=== PATIENT | male | born 1945 | race Caucasian/White ===

== ENCOUNTER 2017-01-07 08:03 | Day surgery (SDC) | payer MEDICARE ==
[~2017-01-07 08:03] MED LIST: Buffered Lidocaine 1% SYRIN* 3 ML/SYR SYRINGE INTRADERM ONE
[2017-01-07] MEDS ORDERED: ceFAZolin 2 GM PREMIX(*) 2 GM/50 ML BAG IVPB ONE (08:23)
[2017-01-07] MEDS ORDERED: fentaNYL* 50 MCG/ML 2 ML VIAL (100 MCG VIAL) ONE (09:25)
[2017-01-07] MEDS ORDERED: Midazolam* 1 MG/ML 2 ML VIAL (2 MG) ONE ×2 (09:25→10:12)
[2017-01-07] MEDS ORDERED: Bupivacaine 0.25% EPI 200,000* 30 ML SDV ONE (09:46)
[2017-01-07] MEDS ORDERED: Lidocaine 1% MPF wEPI 200,000* 30 ML SDV ONE (09:46)
[2017-01-07] MEDS ORDERED: Propofol* 10 MG/ML 20 ML BTL IV PUSH ONE (10:35)
[2017-01-07] MEDS ORDERED: Ondansetron INJ* 2 MG/ML VIAL IV PRN (10:38)
[2017-01-07] MEDS ORDERED: Scopolamine 1.5 mg* PATCH TRANSDERM PRN (10:38)
[2017-01-07] MEDS ORDERED: Metoclopramide IV* 5 MG/ML 2 ML VIAL IV PRN (10:38)
[2017-01-07 12:20] VITALS: BP 121/67
== END 2017-01-07 12:21 | disposition home or self-care (01) ==
LOC: OR 08:03
PROVIDERS: ATTEND Plastic Surgery
DX: C44.41 Basal cell carcinoma of skin of scalp and neck (principal); I10 Essential (primary) hypertension
CPT/HCPCS: 88305; 88331; 88332; J0690; J2001; J2250; J2704; J3010

== ENCOUNTER 2019-04-29 06:55 | Inpatient (IN) | payer MEDICARE ==
--- NOTE | 2019-04-18 14:05 | HP ---
HISTORY AND PHYSICAL: DATE OF ADMISSION: ADDENDUM: PAST MEDICAL HISTORY: Enlarged prostate. MEDICATIONS: Aspirin 325 mg p.o. daily. PLAN: The patient will stop his 325 mg aspirin 10 days prior to surgery, and due to an enlarged prostate, urine output will be monitored postoperatively as well as a coude catheter may be used in surgery. PROMISE SANDOVAL [id number]/[facility] #: [id number] [facility]
--- NOTE | 2019-04-19 03:43 | HP ---
ADDENDUM NOW INCLUDED ON THIS REPORT PREOPERATIVE HISTORY AND PHYSICAL: DATE OF ADMISSION: 04/29/19 ATTENDING PROVIDER: Dr. Serrano * (DICTATED BY PROMISE Zarco) CHIEF COMPLAINT: Right knee pain. HISTORY OF PRESENT ILLNESS: Mr. Reid is a 73-year-old male who presents with greater than 5 years of right knee pain, which is increasing in severity. He describes the pain as 6/10 ache in both knees, but the right is greater than the left. He is no longer able to walk more than 1 block without severe pain and has difficulty with stair climbing and standing. He has tried to manage his discomfort with antiinflammatories, pain medication, physical therapy, steroid injections as well as lubricant injections without relief. He presents for history and physical to proceed with right total knee replacement. PAST MEDICAL HISTORY: Significant for: 1. Hypertension. 2. Hypercholesterolemia. 3. Osteoarthritis. 4. Basal cell carcinoma. PAST SURGICAL HISTORY: 1. Tonsillectomy. 2. Hernia repair. 3. Skin cancer excision. 4. Appendectomy. 5. Nasal surgery. He denies anesthetic complication with any of these procedures. CURRENT MEDICATIONS: 1. Atorvastatin calcium 10 mg p.o. daily. 2. Chlorthalidone 25 mg p.o. daily. 3. Quinapril HCl 40 mg p.o. daily. 4. Amlodipine besylate 10 mg p.o. daily. 5. Metoprolol succinate ER 100 mg daily. 6. Turmeric. ALLERGIES: No known drug allergies. FAMILY HISTORY: Significant for cancer and stroke in his mother, but no diabetes or heart disease noted. SOCIAL HISTORY: He lives alone, but his girlfriend will be attending to him postsurgically. He is a retired teacher. He denies tobacco, alcohol or recreational drug use. He is very active with stationary bike, hunting, fishing , and camping. REVIEW OF SYSTEMS: A 14-point review of systems was reviewed today. He reports his bilateral knee pain and seasonal allergies, but denies headache, lightheadedness, chest pain, shortness of breath with exertion, nausea, vomiting , or diarrhea. No numbness and tingling. All other systems are negative. PHYSICAL EXAMINATION GENERAL: He is a well-developed, well-nourished male, seated on exam table in no acute distress with appropriate affect. VITAL SIGNS: Height 65 inches, weight 174 pounds. Pulse 80, blood pressure 152 /74. HEENT: Normocephalic, atraumatic. Hearing and vision are grossly intact with extraocular movements intact. NECK: The trachea is midline and symmetrical. LUNGS: Clear to auscultation with no wheezes, rales, or rhonchi appreciated. HEART: Regular rate and rhythm with a normal S1, S2. No murmurs, rubs, or gallops noted. ABDOMEN: Nondistended and nontender with bowel sounds present. NEUROLOGIC: Gait: The patient's gait is antalgic, favoring the right knee with slowed and shortened steps. MUSCULOSKELETAL: Right Lower Extremity: Skin is clean, dry, and intact without abrasions or open wounds. There is a moderate effusion of the right knee with 15 to 115 degrees of flexion. He is tender to palpation along the medial joint line without varus or valgus instability. He has patellar crepitus with range of motion. No distal edema, varicosities, or hyperreflexia appreciated; 5/5 strength against resistance with dorsiflexion and plantarflexion. Sensation is intact and 2+ dorsalis pedis pulse. IMAGING: X-rays taken previously showed end-stage arthritis with medial bone- on- bone contact and tricompartmental joint space narrowing with osteophyte formation and subchondral sclerosis. ASSESSMENT: Right knee osteoarthritis. PLAN: Right total knee replacement by Dr. Serrano. The patient's questions were answered and he would like to proceed. Pain medication will be dispensed upon discharge from the hospital. The patient can call us with questions or concerns , otherwise. PROMISE ZARCO ADDENDUM: PAST MEDICAL HISTORY: Enlarged prostate. MEDICATIONS: Aspirin 325 mg p.o. daily. PLAN: The patient will stop his 325 mg aspirin 10 days prior to surgery; and, due to an enlarged prostate, urine output will be monitored postoperatively as well as a coude catheter may be used in surgery. PROMISE ZARCO [id number]/[facility] #: [id number]/[facility] #: [id number] ESTHER
[~2019-04-29 06:55] MED LIST changes: +Acetaminophen TAB* 325 MG PO ONE; +Buffered Lidocaine 1% SYRIN* 1 ML/SYRINGE INTRADERM ONE; -Buffered Lidocaine 1% SYRIN* 3 ML/SYR SYRINGE INTRADERM ONE; +Famotidine IV* 10 MG/ML 2 ML (20 mg) IV ONE; +Gabapentin CAP(*) 300 MG PO ONE; +Lactated Ringers 1000 ML Bag* 1,000 ML IV SCH; +Tranexamic Acid 1,000 MG in NS 0.9% 50 ML* (outpatient use) IV SCH
--- OUTSIDE RECORDS SUMMARY | 2019-04-29 07:00 | XMS REPORT | Continuity of Care Document ---
:1945 External Reference #:[id number] Author Name Aretha Lee Care Team Providers Name Role Phone Stalin Barnett MD Primary Care Physician Unavailable Payers Date Identification Numbers Payment Provider Subscriber Policy Number: [id number] Medicare Hakeem Reid PayID: [id number] [address] [place] [address] Policy Number: [id number] [facility] Hakeem Reid PayID: [id number] [address] [place] [address] Expires: 2019 Policy Number: [id number] Medicare Hakeem Reid PayID: [id number] [address] [place] [address] Problems Active Problems Provider Date Localized, primary osteoarthritis Tasneem Serrano M.D. Onset: 03/26/2019 Family History Date Family Member(s) Observation Comments General Stroke General Cancer Social History Type Date Description Comments Sex Unknown Lives With Alone Occupation Retired ETOH Use Denies alcohol use Tobacco Use Start: Unknown End: Patient is a former 45 years ago Unknown smoker Smoking Status Reviewed: 04/16/19 Patient is a former 45 years ago smoker Exercise Type/Frequency Exercises regularly Allergies, Adverse Reactions, Alerts Description No Known Drug Allergies Medications Active Medications SIG Qnty Indications Ordering Provider Date Atorvastatin Calcium Stalin Barnett MD 10mg Tablets Chlorthalidone Stalin Barnett MD 25mg Tablets Quinapril HCL Stalin Barnett MD 40mg Tablets Amlodipine Besylate Stalin Barnett MD 10mg Tablets Metoprolol Succinate ER Stalin Barnett MD 100mg Tablets ER 24HR Turmeric Unknown Aspirin Adult Unknown 325mg Tablets Vital Signs Date Vital Result Comment 04/16/2019 10:48am Height 65 inches 5'5" Weight 174.00 lb Heart Rate 80 /min BP Systolic 152 mmHg BP Diastolic 74 mmHg BMI (Body Mass Index) 29.0 kg/m2 03/26/2019 2:21pm Height 65 inches 5'5" Weight 172.00 lb Heart Rate 73 /min BP Systolic 160 mmHg BP Diastolic 84 mmHg Respiratory Rate 18 /min Pain Level 6 BMI (Body Mass Index) 28.6 kg/m2 Procedures Date Code Description Status 12/26/2015 94583 Laparoscopy, Hernioplasty, Herniorrhaphy, Herniotomy Completed Unlisted 12/26/2015 52649 Laparoscopy, Surgical Repair Initial Inguinal Hernia Completed Encounters Type Date Location Provider Dx Diagnosis Office Visit 03/26/2019 Orthopedic Tasneem Serrano, M25.561 Pain in right 2:[facility].AJimmy Mayes knee M25.562 Pain in left knee M25.462 Effusion, left knee M25.461 Effusion, right knee M17.0 Bilateral primary osteoarthritis of knee Plan of Treatment Future Appointment(s):05/11/2019 10:30 am - MIRANDA Nogueira at [facility]..04/29/2019 3:30 pm - MIRANDA Segovia at [facility].AJimmy04/29/2019 3:30 pm - MIRANDA Nogueira at [facility].Jimmy04/29/2019 3:30 pm - Tasneem Serrano M.D. at [facility].
[2019-04-29] MEDS ORDERED: Gabapentin CAP(*) 300 MG ONE (08:17)
[2019-04-29] MEDS ORDERED: ceFAZolin 2 GM in NS PREMIX(*) 2 GM/100 ML BAG IVPB ONE (08:18)
[2019-04-29] MEDS ORDERED: Famotidine IV* 10 MG/ML 2 ML (20 mg) ONE (08:18)
[2019-04-29] MEDS ORDERED: Buffered Lidocaine 1% SYRIN* 1 ML/SYRINGE INTRADERM ONE (08:18)
[2019-04-29] MEDS ORDERED: Acetaminophen TAB* 325 MG ONE (08:18)
[2019-04-29] MEDS ORDERED: ROPIVACAINE 5 MG/ML 30 ML BTL (0.5%) ONE ×2 (08:47→08:50)
[2019-04-29] MEDS ORDERED: Midazolam* 1 MG/ML 2 ML VIAL (2 MG) ONE ×2 (08:48→09:13)
[2019-04-29] MEDS ORDERED: fentaNYL* 50 MCG/ML 2 ML VIAL (100 MCG VIAL) ONE (08:48)
[2019-04-29] MEDS ORDERED: Lidocaine 2% PF * 5 ML VIAL ONE (08:50)
[2019-04-29] MEDS ORDERED: Propofol* 10 MG/ML 20 ML BTL ONE ×2 (09:34→11:06)
[2019-04-29] MEDS ORDERED: Bupivacaine 0.5% SDV PF* 30ML VIAL ONE (10:20)
[2019-04-29] MEDS ORDERED: HYDROmorphone INJ1* 1 MG/ML SYRINGE IV PRN (10:44)
[2019-04-29] MEDS ORDERED: Naloxone* 0.4 MG/ML 1 ML VIAL IV PRN (10:44)
[2019-04-29] MEDS ORDERED: Ondansetron INJ* 2 MG/ML VIAL IV PRN (11:59)
[2019-04-29] MEDS ORDERED: Magnesium Hydroxide LIQ* 30 ML UDC PO PRN (11:59)
[2019-04-29] MEDS ORDERED: diPHENhydraMINE PO* 25 MG PO PRN (11:59)
[2019-04-29] MEDS ORDERED: oxyCODONE/Acetamin 5/325 MG* TAB PO PRN (11:59)
[2019-04-29] MEDS ORDERED: Ondansetron ODT TAB* 4 MG PO PRN (11:59)
[2019-04-29] MEDS ORDERED: Temazepam CAP* 15 MG PO PRN (11:59)
[2019-04-29] MEDS ORDERED: Bisacodyl SUPP* 10 MG SUPP PR PRN (11:59)
[2019-04-29] MEDS ORDERED: Cyclobenzaprine TAB* 10 MG PO PRN (11:59)
[2019-04-29] MEDS ORDERED: Polyethylene Glycol 3350* 17 GM PACKET PO PRN (11:59)
[2019-04-29] MEDS ORDERED: diPHENhydraMINE IV* 50 MG/ML 1 ml VIAL (BENADRYL) IV PRN (11:59)
[2019-04-29] MEDS: Lactated Ringers 1000 ML Bag* 1,000 ML IV SCH (13:29)
[2019-04-29] MEDS: traMADol TAB* 50 MG PO PRN (13:33)
--- NOTE | 2019-04-29 14:18 | CONS ---
CC: Dr. Barnett; Dr. Tasneem Serrano * CONSULTATION REPORT: DATE OF CONSULT: 04/29/19 PRIMARY CARE PROVIDER: Dr. Barnett. REQUESTING PHYSICIAN: Dr. Tasneem Serrano. REASON FOR CONSULT: Management of comorbidities. HISTORY OF PRESENT ILLNESS: Mr. Reid is a 74-year-old male with a past medical history of hypertension, BPH, hyperlipidemia, who has had years of right knee pain progressively increasing in severity. He failed outpatient management and was now admitted for an elective right total knee replacement that he underwent today with Dr. Serrano. The hospitalist service was consulted for management of comorbidities. I saw the patient in the PACU, and at that time, he had no complaints of pain, chest pain, palpitation, shortness of breath. He states that his blood pressure is usually well controlled at home, but he was anxious for surgery today, so his numbers were higher on hospital arrival. PAST MEDICAL HISTORY: 1. Hypertension. 2. Hyperlipidemia. 3. Osteoarthritis. 4. Basal cell carcinoma. 5. Status post tonsillectomy. 6. Status post skin cancer resection. 7. Status post hernia repair. 8. Status post appendectomy. 9. Hiatal hernia. FAMILY HISTORY: His mother had a history of cancer and stroke. 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 Denies tobacco, alcohol, or recreational drug use. Surrogate decision maker is his daughter, Donya Kelly. Phone number is [phone] or [phone]. REVIEW OF SYSTEMS: A 14-point review of systems was performed and all the pertinent negative and positive findings are in the HPI. PHYSICAL EXAMINATION: Vital Signs: Temperature 97.9, heart rate is 66, respiratory rate is 18, oxygen saturation is 99% on 2 L nasal cannula, blood pressure is 131/73. General: The patient is a pleasant elderly gentleman, lying down in bed, in no acute distress. HEENT: Pupils are equal. Moist mucous membranes. CVS: Normal S1, S2. Regular rate and rhythm. Chest: Breath sounds present bilaterally with no added sounds. Abdomen is soft. Bowel sounds present. Extremities: The patient has a Cryounit to his right knee. Neuro: He is alert and oriented x3. Able to move all 4 extremities. ASSESSMENT AND PLAN: Mr. Reid is a 74-year-old male with past medical history of hypertension, hyperlipidemia, BPH, admitted for an elective right total knee replacement. 1. Right total knee arthroplasty. Management as per Orthopedics. 2. Hypertension. We are going to continue his amlodipine, chlorthalidone, metoprolol, and BRANDEE inhibitor with holding parameters. 3. Hyperlipidemia. We will continue statin. 4. Possible obstructive sleep apnea. The patient states that he was never diagnosed with sleep apnea, but that his used to tell him that he would "stop breathing while sleeping." We will monitor his oxygen saturation overnight and he will probably benefit of a sleep study as an outpatient. 5. DVT prophylaxis. It will be with apixaban as per ortho recommendation. 6. Code status is full. TIME SPENT: Approximately 45 minutes was spent with patient interview, medical records review, and physical examination to complete this consultation. More than half of this time was spent [id number] with the patient and coordination of care. [id number]/[facility] #: [id number] MTDD
[2019-04-29] MEDS: oxyCODONE TAB* 5 MG TAB PO PRN ×3 (14:21→22:47)
[2019-04-29] MEDS: Morphine INJ* 2 MG/ML 1 ML SYRINGE (TWO MG - NEW SYRINGE VERSION) IV PRN (14:24)
[2019-04-29] MEDS: Acetaminophen TAB* 325 MG PO SCH (15:39)
[2019-04-29] MEDS: oxyCODONE/Acetamin 5/325 MG* TAB PO PRN ×2 (16:21→20:47)
[2019-04-29] MEDS: ceFAZolin 1 GM ADVAN(*) 1 GM in NS 0.9% 50 ML* 50 ML IVPB SCH (17:13)
--- NOTE | 2019-04-29 17:17 | PN ---
Progress Note - Progress Note Date of Service: 04/29/19 - Post-op Note: Patient is resting in bed complaining of throbbing pain that has not been relieved with 2 percocet. He has been OOB with PT already. He denies CP, SOB or dizziness. He can dorsi/plantar flex bilaterally, with intact sensation and 2+ DP pulses. Calves and thighs are soft. Skin is warm and dry. I will discuss pain management nt with nursing. Patient hopes for d/c tomorrow. Continue PT/OT and we will monitor.
[2019-04-29] MEDS: Morphine TAB Extended Release (*) 15 MG TAB.ER PO PRN (17:27)
[2019-04-29] MEDS: Magnesium Hydroxide LIQ* 30 ML UDC PO SCH (20:48)
[2019-04-29] MEDS: Docusate CAP* 100 MG PO SCH (20:48)
[2019-04-29] MEDS ORDERED: Atorvastatin* 10 MG TAB PO SCH (21:00)
--- NOTE | 2019-04-29 22:54 | OP ---
Operative Report - Blank - Operative Report Date of Operation: 04/29/19 Note: KEE CANO 1945 Date of Surgery: 04/29/19 Tasneem Serrano MD [employer] Machine Adjuster: Renee VIRGEN did help throughout the procedure with preparation of the knee, wound retraction, manipulation of the knee, and wound closure. Anesthesiologist: Dr. Pinto Anesthesia Type: Spinal Preoperative Diagnosis: Right severe degenerative osteoarthritis of the knee Postoperative Diagnosis: As above Procedure Performed: Right Total Knee Arthroplasty Tourniquet time: 49 minutes Complications: None Specimen: Bone and cartilage from the right knee joint sent to pathology. Hardware Used: Cemented [employer] total knee hardware was used - For the femur a size 6 narrow right legion posterior stabilized femoral component, for the tibia a size 5 right odalis II tibial baseplate, for the insert a size 9mm 5-6 posterior stabilized articular polyethylene insert, and for the patella a size 32 3-peg all poly patella. Brief History/Indication: KEE CANO was known in clinic and had a history of severe right knee pain and swelling. He failed conservative treatment with anti- inflammatories, pain pills, intra-articular injections and physical therapy. He elected to undergo right total knee arthroplasty due to continued pain and decreased quality of life. Radiographs showed severe end stage osteoarthritis of the knee with bone on bone contact. Informed consent was obtained from the patient. He understood the risks of surgery included but were not limited to: bleeding, infection, damage to nearby structures, intraoperative fracture, nerve palsy, failure of the hardware, early loosening, knee stiffness or loss of motion, anesthesia complications, stroke, heart attack, blood clot and . He wished to proceed. Intra-Operative Findings: Intraoperatively the patient was noted to have severe loss of cartilage in all 3 compartments of the knee. Description of the Procedure: KEE CANO was identified in the preanesthesia unit. His right knee was marked as the correct operative side. Informed consent was signed and placed in the chart. The patient was taken to the operating room and placed under anesthesia without complication. A landin catheter was placed. A tourniquet was placed on the right thigh. The right lower extremity was prepped and draped in the usual sterile fashion. Preoperative time-out was made to correctly identify the patient, side and site. Appropriate intraoperative antibiotics were given within one hour of incision. Tourniquet was inflated. A midline incision was made and carried sharply down to the extensor mechanism. A new 10 blade was used to make a standard medial parapatellar arthrotomy. The patella was subluxed laterally. Electrocautery was used to dissect soft tissue off the superomedial tibia to the midsagittal plane. The knee was flexed up. The anterior horn of the lateral meniscus and the ACL were sharply incised. A drill was used to enter the distal femur. The intramedullary distal femoral cutting guide was pinned on the distal femur. The oscillating saw was used to make the distal femoral cut. The external rotation guide was pinned on the distal femur and the distal femur was sized to a size 6. The size 6 multi-cutting jig was pinned on the distal femur. The oscillating saw was used to make the appropriate 4 chamfer cuts. Next the PCL was completely released. The extramedullary tibial cutting guide was pinned on the proximal tibia and the oscillating saw was used to make the proximal tibial cut perpendicular to the mechanical axis of the tibia. The bone was carefully removed. The knee was brought out into full extension. The spacer block was placed and had excellent fit with the knee in full extension. The medial and lateral ligaments were well balanced. The flexion and extension gaps were well balanced. The knee was flexed up. Lamina store leader was placed both medially and laterally. Any remaining meniscus was removed with electrocautery. Curved osteotome was used to remove any posterior osteophytes. The tibial tray and drop vanesa were placed and confirmed a satisfactory tibial cut. The size 6 right narrow femoral trial was impacted onto the distal femur. This trial had excellent fit and stability. The box for the posterior stabilized implant was prepared using a box cut osteotome and a reamer. Next a tibial tray trial and 9 mm insert trial was placed. The knee was taken through a range of motion and had full extension to 130 degrees of flexion. Patellofemoral tracking was satisfactory. The patella was inverted and sized to a size 32. Three peg holes were drilled through the size 32 drill guide. The trial patella was placed and the knee was taken through a range of motion. There was satisfactory patellofemoral tracking. All trials were removed. The tibia was subluxed anteriorly and sized to a size 5. The proximal tibial was prepared with a size 5 keel punch. All bony cut surfaces were irrigated with sterile saline and dried. Final implants were cemented into place starting with the tibia, followed by the femur, and last the patella. A 9 mm insert trial was placed and the knee was brought into full extension. Tourniquet was turned down and the knee was copiously irrigated with sterile saline. Electrocautery was used to obtain meticulous hemostasis. Once the cement had fully cured, the insert trial was removed. Any excess cement was removed from around the hardware and capsule. Final insert chosen was a 9 mm posterior stabilized Odalis II articular insert size 5-6. Stability of the insert was checked and noted to be stable. The extensor mechanism was closed using number 1 vicryls. The rest of the incision was closed in a layered fashion using 0 and 2-0 vicryls. The skin was closed using 3-0 nylon suture. Sterile xeroform, 4x4s and webril were used to cover the incision. Dennys wrap and cold pack were used to cover the dressings. The patients anesthesia was reversed without difficulty. He was taken to the PACU in stable condition. Intended weight-bearing will be as tolerated.
[2019-04-30] MEDS: oxyCODONE/Acetamin 5/325 MG* TAB PO PRN ×4 (00:49→16:19)
[2019-04-30] MEDS: ceFAZolin 1 GM ADVAN(*) 1 GM in NS 0.9% 50 ML* 50 ML IVPB SCH ×2 (00:52→09:31)
[2019-04-30] MEDS: Lactated Ringers 1000 ML Bag* 1,000 ML IV SCH (00:52)
[2019-04-30] MEDS: Acetaminophen TAB* 325 MG PO SCH ×2 (00:58→09:25)
[2019-04-30] MEDS: oxyCODONE TAB* 5 MG TAB PO PRN ×2 (02:53→07:17)
[2019-04-30] MEDS: Morphine INJ* 2 MG/ML 1 ML SYRINGE (TWO MG - NEW SYRINGE VERSION) IV PRN (02:54)
[2019-04-30 06:00] LABS: Hematocrit 41 % (42-52); Platelet Count 297 10^3/uL (150-450)
[2019-04-30] MEDS: Morphine TAB Extended Release (*) 15 MG TAB.ER PO PRN (06:06)
[2019-04-30] MEDS: traMADol TAB* 50 MG PO PRN (06:06)
[2019-04-30 06:16] LABS: Potassium 3.7 mmol/L (3.5-5.0)
[2019-04-30 06:21] LABS: BUN/Creatinine Ratio 17.6 (8-20); EGFR African American 106.9 (>60); EGFR Non-African American 88.4 (>60)
[2019-04-30] MEDS ORDERED: Chlorthalidone TAB* 50 MG PO SCH (09:00)
[2019-04-30] MEDS ORDERED: Apixaban* 2.5 MG TAB PO SCH (09:00)
[2019-04-30] MEDS ORDERED: Lisinopril TAB* 10 MG PO SCH (09:00)
[2019-04-30] MEDS ORDERED: Metoprolol Succinate XL TAB* 100 MG PO SCH ×2 (09:00)
[2019-04-30] MEDS ORDERED: amLODIPine TAB* 5 MG PO SCH ×2 (09:00)
[2019-04-30] MEDS ORDERED: NON FORMULARY MED* (Chlorthalidone [Chlorthalidone] 25 MG) PO SCH (09:00)
[2019-04-30] MEDS ORDERED: QUINAPRIL 40 MG PO SCH (09:00)
[2019-04-30] MEDS: Docusate CAP* 100 MG PO SCH (09:29)
[2019-04-30] MEDS: Magnesium Hydroxide LIQ* 30 ML UDC PO SCH (09:29)
[2019-04-30 11:25] VITALS: BP 148/67
--- NOTE | 2019-04-30 11:41 | PN ---
Subjective Date of Service: 04/30/19 Interval History: Patient is having significant pain in his leg, denies numbness and tingling. Patient denies F/C, N/V, abdominal pain, dysuria, dizziness, palpitations, SOB, or other pain. Patient is on oxygen due to desaturations, but feels this got worse after pain medications. Family History: Unchanged from Admission Social History: Unchanged from Admission Past Medical History: Unchanged from Admission Objective Active Medications: Acetaminophen (Tylenol Tab*) 975 mg PO Q8H [facility] Last Admin: 04/30/19 09:25 Dose: Not Given Amlodipine Besylate (Norvasc Tab*) 10 mg PO QAM [facility] Last Admin: 04/30/19 09:27 Dose: 10 mg Apixaban (Eliquis*) 2.5 mg PO BID [facility] Last Admin: 04/30/19 09:27 Dose: 2.5 mg Atorvastatin Calcium (Lipitor*) 10 mg PO BEDTIME [facility] Last Admin: 04/29/19 20:47 Dose: 10 mg Bisacodyl (Dulcolax Supp*) 10 mg TX DAILY PRN PRN Reason: constipation Chlorthalidone (Hygroton Tab*) 25 mg PO QAM [facility] Last Admin: 04/30/19 09:27 Dose: 25 mg Cyclobenzaprine HCl (Flexeril Tab*) 10 mg PO TID PRN PRN Reason: SPASMS Last Admin: 04/30/19 00:50 Dose: 10 mg Diphenhydramine HCl (Benadryl Iv*) 25 mg IV Q6H PRN PRN Reason: itching Diphenhydramine HCl (Benadryl Po*) 25 mg PO Q6H PRN PRN Reason: itching Docusate Sodium (Colace Cap*) 100 mg PO BID [facility] Last Admin: 04/30/19 09:29 Dose: Not Given Lactated Ringer's (Lactated Ringers 1000 Ml Bag*) 1,000 mls @ 100 mls/hr IV PER RATE [facility] Last Admin: 04/30/19 00:52 Dose: 100 mls/hr Lactulose (Lactulose*) 30 ml PO Q6H PRN PRN Reason: constipation Lisinopril (Prinivil Tab*) 40 mg PO QAM [facility] Last Admin: 04/30/19 09:29 Dose: 40 mg Magnesium Hydroxide (Milk Of Magnesia Liq*) 30 ml PO BID [facility] Last Admin: 04/30/19 09:29 Dose: Not Given Magnesium Hydroxide (Milk Of Magnesia Liq*) 30 ml PO Q6H PRN PRN Reason: constipation Metoprolol Succinate (Toprol Xl Tab*) 100 mg PO QAM [facility] Last Admin: 04/30/19 09:29 Dose: 100 mg Morphine Sulfate (Morphine Inj (Syringe))*) 2 mg IV Q2H PRN PRN Reason: PAIN - SEVERE Last Admin: 04/30/19 02:54 Dose: 2 mg Morphine Sulfate (Ms Contin(*)) 15 mg PO Q12H PRN PRN Reason: Unrelieved pain Last Admin: 04/30/19 06:06 Dose: 15 mg Ondansetron HCl (Zofran Inj*) 4 mg IV Q6H PRN PRN Reason: nausea Ondansetron HCl (Zofran Odt Tab*) 4 mg PO Q6H PRN PRN Reason: NAUSEA Oxycodone HCl (Roxycodone Tab*) 10 mg PO Q4H PRN PRN Reason: PAIN - MODERATE Last Admin: 04/30/19 07:17 Dose: 10 mg Oxycodone/Acetaminophen (Percocet 5/325 Tab*) 1 tab PO Q4H PRN PRN Reason: PAIN - MILD Oxycodone/Acetaminophen (Percocet 5/325 Tab*) 2 tab PO Q4H PRN PRN Reason: PAIN - MILD Last Admin: 04/30/19 09:30 Dose: 2 tab Polyethylene Glycol/Electrolytes (Miralax*) 17 gm PO DAILY PRN PRN Reason: Constipation Temazepam (Restoril Cap*) 15 mg PO BEDTIME PRN PRN Reason: INSOMNIA Tramadol HCl (Ultram*) 50 mg PO Q6H PRN PRN Reason: PAIN - MILD Last Admin: 04/30/19 06:06 Dose: 50 mg Vital Signs - 8 hr 04/30/19 04/30/19 04/30/19 04:10 04:40 04:45 Temperature 99.0 F Pulse Rate 82 Respiratory 16 18 16 Rate Blood Pressure 146/77 (mmHg) O2 Sat by Pulse 97 Oximetry 04/30/19 04/30/19 04/30/19 04:47 04:50 06:06 Temperature Pulse Rate Respiratory 16 16 16 Rate Blood Pressure (mmHg) O2 Sat by Pulse 97 Oximetry 04/30/19 04/30/19 04/30/19 06:15 07:17 07:31 Temperature 98.4 F Pulse Rate 85 Respiratory 16 18 16 Rate Blood Pressure 145/76 (mmHg) O2 Sat by Pulse 19 95 Oximetry 04/30/19 04/30/19 04/30/19 08:00 09:30 11:24 Temperature 99.6 F Pulse Rate 78 Respiratory 16 18 16 Rate Blood Pressure 148/67 (mmHg) O2 Sat by Pulse 96 96 Oximetry Oxygen Devices in Use Now: Nasal Cannula Appearance: Patient is a 74yo male who appears stated age and is sitting in the bed in NAD. Eyes: No Scleral Icterus, PERRLA Ears/Nose/Mouth/Throat: NL Teeth, Lips, Gums, Clear Oropharnyx, Mucous Membranes Moist Neck: NL Appearance and Movements; NL JVP, Trachea Midline Respiratory: Symmetrical Chest Expansion and Respiratory Effort, Clear to Auscultation Cardiovascular: NL Sounds; No Murmurs; No JVD, RRR, No Edema Abdominal: NL Sounds; No Tenderness; No Distention, No Hepatosplenomegaly Lymphatic: No Cervical Adenopathy Extremities: No Edema, No Clubbing, Cyanosis Skin: No Nodules or Sclerosis, - - RLE incision covered in bulky dressing. Neurological: Alert and Oriented x 3, NL Sensation, NL Muscle Strength and Tone Result Diagrams: 04/30/19 05:10 04/30/19 05:10 Assess/Plan/Problems-Billing Assessment: Patient is a 74yo male with a PMH for HTN, HLD and is s/p TRKA and is doing well. - Patient Problems (1) Post-operative state Current Visit: Yes Status: Acute Code(s): Z98.890 - OTHER SPECIFIED POSTPROCEDURAL STATES SNOMED Code(s): 39035750 Comment: - Management per Orthopedics - ISB for atalectasis, no concern for PE or PNA at this point with hypoxia. - PT/OT, Bowel regimen, Monitor H/H (2) HTN (hypertension) Current Visit: Yes Status: Acute Code(s): I10 - ESSENTIAL (PRIMARY) HYPERTENSION SNOMED Code(s): 79329038 Comment: - Normotensive, continue amlodipine, lisinopril, and metoprolol (3) HLD (hyperlipidemia) Current Visit: Yes Status: Acute Code(s): E78.5 - HYPERLIPIDEMIA, UNSPECIFIED SNOMED Code(s): 06074109 Comment: - Continue statin. (4) DVT prophylaxis Current Visit: Yes Status: Acute Code(s): Z29.9 - ENCOUNTER FOR PROPHYLACTIC MEASURES, UNSPECIFIED SNOMED Code(s): 902672072 Comment: - Eliquis Per Ortho (5) Full code status Current Visit: Yes Status: Acute Code(s): Z78.9 - OTHER SPECIFIED HEALTH STATUS SNOMED Code(s): 619560127 Status and Disposition: Disposition per orthopedics. Thank you for this consultation, we will continue to follow along.
--- NOTE | 2019-04-30 14:18 | DS ---
Orthopedic Discharge Summary - Discharge Summary Date of Admission:04/29/19 Date of Discharge: 04/30/19 Date of Surgery: 04/29/19 Attending Orthopedic Provider: Dr. Serrano Pre-operative Diagnosis: Degenerative arthritis right knee Operative Procedure: Right total knee arthroplasty Disposition of Patient: home Condition of Patient: Stable History: KEE CANO is a 74 year old M with years of increasingly severe right knee pain. Patient has failed conservative management and has elected to undergo a right total knee replacement. Hospital Course: KEE was admitted to [facility] on 04/29/19. Patient underwent a right total knee without complication followed by a brief recovery in PACU and transfer to the Short Stay Surgical Unit in stable condition. Our hospitalist service, physical therapy and occupational therapy also participated in this patients care. Post-op day 1: patient was alert and in no acute distress. Dressing was clean, dry and intact. Operative extremity dorsiflexion and plantarflexion intact, sensation intact to light touch distally , DP2+. His dressing was changed, incision was clean, dry and intact. Patient was deemed to be medically and orthopedically stable for discharge. Physical therapy goals were met. Home Medications Medication Instructions Recorded Confirmed Type Atorvastatin* [Lipitor 10 MG*] 10 mg PO BEDTIME 12/19/15 04/16/19 History Multivitamin [One Daily] 1 tab PO QAM 12/19/15 04/16/19 History amLODIPine TAB* [Norvasc 5 mg TAB*] 10 mg PO QAM 12/19/15 04/16/19 History Chlorthalidone 25 mg PO QAM 04/16/19 04/16/19 History Metoprolol Succinate 100 mg PO QAM 04/16/19 04/16/19 History Quinapril HCl 40 mg PO QAM 04/16/19 04/16/19 History Apixaban* [Eliquis*] 2.5 mg PO BID #60 tab 04/30/19 Rx Docusate CAP* [Colace Cap*] 100 mg PO BID cap 04/30/19 Rx oxyCODONE/Acetamin 5/325 MG* 1 - 2 tab PO Q4H PRN #70 tab MDD 10 04/30/19 Rx [Percocet 5/325 TAB*] Discharge Instructions following Orthopedic Surgery: Activity: * Weight Bearing as tolerated * Continue physical therapy and occupational therapy exercises as shown * Wound care: * OK to shower on post-op day 3, no bathing, swimming, or submerging wound. * Use gentle soap, pat dry. Cover with gauze, BRANDEE wrap or tape. * Visiting home nurse to do wound checks. Call Orthopedic office for: * Increased drainage * Redness * Increased pain * Fever Go to ER with shortness of breath or chest pain. Diet: * Regular diet * Increase fluids and fiber to prevent constipation. * Continue to use stool softeners, call office if no bowel motion within 48 hours. Medications See Home Medication List in your packet for medications that you should take after discharge. DVT Prophylaxis: Eliquis Dosin.5 mg, 1 tab every 12 hours x 30 days Pain Control: Percocet Dosin/325 mg 1-2 tabs by mouth every 4-6 hours as needed for pain. Maximum of 10 tabs per day. Please note that Percocet contains Tylenol (acetaminophen). Maximum daily dose of Tylenol is 4000 mg from all sources. Antibiotics are required prior to any dental work. FOLLOW UP: Follow up with Dr. Serrano Within 10-14 days, call for appointment Please call our office with any questions or concerns ([phone]) To start outpatient PT as [facility] next week
== END 2019-04-30 17:20 | disposition home or self-care (01) | DRG 470 ==
LOC: AA 06:55 → SSU 11:59
PROVIDERS: ADMIT Orthopaedic Surgery Adult Reconstructive Orthopaedic Surgery; ATTEND Orthopaedic Surgery Adult Reconstructive Orthopaedic Surgery
PROC: 0SRC0J9 Replacement of Right Knee Joint with Synthetic Substitute, Cemented, Open Approach (ICD-10-PCS; principal; 2019-04-29 11:00)
DX: M17.11 Unilateral primary osteoarthritis, right knee (principal); I10 Essential (primary) hypertension; E78.00 Pure hypercholesterolemia, unspecified; J30.2 Other seasonal allergic rhinitis; M25.461 Effusion, right knee; M25.761 Osteophyte, right knee; N40.0 Benign prostatic hyperplasia without lower urinary tract symptoms; E78.5 Hyperlipidemia, unspecified; Z85.828 Personal history of other malignant neoplasm of skin; Z80.9 Family history of malignant neoplasm, unspecified; Z82.3 Family history of stroke
CPT/HCPCS: 36415; 80048; 85014; 85018; 85049; 88305; 88311; A9270-GY; C1776; G8978-GP-CJ; G8979-GP-CI; J0690; J2250; J2270; J2704; J2795; J3010; J3490

== ENCOUNTER 2019-10-01 08:31 | Observation (INO) | payer MEDICARE ==
--- NOTE | 2019-09-24 15:28 | HP ---
HISTORY AND PHYSICAL: DATE OF ADMISSION/SURGERY: 10/01/19 DATE OF OFFICE VISIT: 09/24/19 SURGEON: Tasneem Serrano MD * (DICTATED BY PROMISE ARIAS) PROCEDURE: Left total knee arthroplasty. CHIEF COMPLAINT: Left knee pain. HISTORY OF PRESENT ILLNESS: Mr. Reid is a 74-year-old gentleman with end- stage osteoarthritis of the left knee. He has failed conservative treatment and elected to proceed with a left total knee arthroplasty. PAST MEDICAL HISTORY: 1. Hypertension. 2. High cholesterol. 3. Basal cell carcinoma. PAST SURGICAL HISTORY: 1. Tonsillectomy. 2. Hernia repair. 3. Appendectomy. 4. Nasal surgery. 5. Right total knee arthroplasty. 6. Excision of a basal cell carcinoma. CURRENT MEDICATIONS: 1. Atorvastatin calcium 10 mg a day. 2. Chlorthalidone 25 mg a day. 3. Quinapril 40 mg a day. 4. Amlodipine 10 mg a day. 5. Metoprolol 100 mg a day. 6. Aspirin 325 mg a day. ALLERGIES: No known drug allergies. FAMILY HISTORY: Of cancer and stroke. SOCIAL HISTORY: He is a 74-year-old gentleman, lives alone. Does not smoke or use drugs. Uses alcohol rarely. REVIEW OF SYSTEMS: A complete 14-point review of systems was reviewed with the patient. It was all negative and noncontributory. He denies history of DVT, PE , hepatitis, HIV, or anesthesia problems. PHYSICAL EXAMINATION GENERAL: He is well developed, well nourished, in no acute distress. VITAL SIGNS: He stands 65 inches tall, weighs 174 pounds. Blood pressure is 142/78, heart rate is 56. HEENT: Normocephalic, atraumatic. NECK: Supple. No palpable lymph nodes. PULMONARY: The lungs are clear to auscultation bilaterally. CARDIO: Regular rate and rhythm. Strong S1, S2. ABDOMEN: Soft, nontender, nondistended. NEUROLOGICAL: He is alert and oriented x3. MUSCULOSKELETAL: Left lower extremity: The skin is intact. There are no open wounds or abrasions. There is some tenderness along the medial and lateral joint line. Range of motion is 15 to 100 degrees of flexion with patellofemoral crepitus. He is able to dorsiflex and plantar flex and has 2+ dorsalis pedis pulse. ASSESSMENT AND PLAN: Mr. Reid is a 74-year-old gentleman with end-stage osteoarthritis of the left knee. He has failed conservative treatment and elected to proceed with a left total knee arthroplasty. Surgery is scheduled for 10/01/[address] Serrano discussed the risks and benefits of the surgery at today's visit and all of his questions were answered. He will follow up with Dr. Serrano 2 weeks after the surgery. PROMISE ARIAS [id number]/CPS #: [id number] MTDEloise
[~2019-10-01 08:31] MED LIST changes: -Acetaminophen TAB* 325 MG PO ONE; -Famotidine IV* 10 MG/ML 2 ML (20 mg) IV ONE; -Gabapentin CAP(*) 300 MG PO ONE
--- OUTSIDE RECORDS SUMMARY | 2019-10-01 08:35 | XMS REPORT | Continuity of Care Document ---
:1945 External Reference #:[id number] Author Name Tasneem Serrano M.D. (transmitted by agent of provider Nita Minaya) Address [address] [place] [address] [place] [address] Care Team Providers Name Role Phone Stalin Barnett MD - Internal Care Team Information Adult Manager [phone] Medicine Problems Active Problems Provider Date Localized, primary osteoarthritis Tasneem Serrano M.D. Onset: 03/26/2019 Social History Type Date Description Comments Sex Unknown ETOH Use Denies alcohol use Tobacco Use Start: Unknown End: Patient is a former smoker 45 years ago Unknown Smoking Status Reviewed: 09/24/19 Patient is a former smoker 45 years ago Exercise Type/Frequency Exercises regularly Allergies, Adverse Reactions, Alerts Description No Known Drug Allergies Medications Active Medications SIG Qnty Indications Ordering Provider Date Atorvastatin Calcium Wattoo, Gant, 10mg MD Tablets Chlorthalidone 1 tablet daily WattooHayGant, 25mg Tablets MD Quinapril HCL 1 tablet daily Wattoo, Gant, 40mg Tablets MD Amlodipine Besylate 1 tablet daily Wattoo, Gant, 10mg MD Tablets Metoprolol Succinate ER 1 tablet daily Wattoo, Gant, 100mg MD Tablets ER 24HR Aspirin Adult 1 tablet daily Unknown 325mg Tablets History Medications Tramadol HCL 1 tablet by mouth 42tabs Tasneem Serrano, 05/11/2019 - 50mg every 4 to 6 hours M.D. 09/23/2019 Tablets as needed pain. max 6 per day Immunizations Description No Information Available Vital Signs Date Vital Result Comment 09/24/2019 10:00am Height 65 inches 5'5" Weight 165.00 lb Heart Rate 56 /min BP Systolic 142 mmHg BP Diastolic 78 mmHg Respiratory Rate 16 /min Pain Level 0 BMI (Body Mass Index) 27.5 kg/m2 06/14/2019 10:39am Height 65 inches 5'5" Weight 174.00 lb Heart Rate 76 /min BP Systolic 140 mmHg BP Diastolic 70 mmHg Body Temperature 97.8 F Pain Level 0 BMI (Body Mass Index) 29.0 kg/m2 Results Test Acquired Date Facility Test Result H/L Range Note Urinalysis Profile 04/16/2019 [facility] Urine Color Yellow [address] [place] [address] [phone] Urine Appearance Clear Urine Specific [place] 1.017 Normal 1.010-1.030 Urine pH 6.0 Normal 5-9 Urine Urobilinogen Negative Negative Urine Ketones Negative Negative Urine Protein Negative Negative Urine Leukocytes Negative Negative Urine Blood Negative Negative Urine Nitrite Negative Negative Urine Bilirubin Negative Negative Urine Glucose Negative Negative Type & Screen 04/16/2019 [facility] Patient Blood Type B Positive [address] [place] [address] [phone] Antibody Screen NEGATIVE Inr/Protime 04/16/2019 [facility] Inr 1.01 Normal 0.82-1.[address] [place] [address] [phone] Laboratory test 04/16/2019 [facility] Partial 37.9 Normal 26.0 -38.0 [address] [place] [address] Time PTT [phone] Urine Culture And 04/16/2019 [facility] Urine SEE RESULT [address] [place] [address] [phone] 1 04/29 2 Standard intensity warfarin therapeutic range: 2.0-3.0 High intensity warfarin therapeutic range: 2.5-3.5 3 04/29 4 SEE RESULT BELOW Name: KEE REID : [address]: Tasneem Serrano MD Acct: [id number] Unit: [id number] AGE: 73 Location: [facility] Re04/16/19 SEX: M Status: REG REF SPEC: [id number] HELEN: 04/16/19-[address]: Tasneem Serrano MD REQ: [id number] RECD: 04/16/19 STATUS: COMP _ SOURCE: URINE SPDESC: ORDERED: Urine Culture COMMENTS: CHANDANA 04/29 QUERIES: Urine Source: Clean Catch Procedure Result Reported Site Urine Culture Final 04/17/19- 1205 ML No Growth (<1,000 CFU/mL) * - Main Lab . END OF REPORT DEPARTMENT OF PATHOLOGY, [address] [place] [address] Hay Lal M.D[address] Director [facility] # [id number] Procedures Date Code Description Status 04/29/2019 15991 TKR Total Knee Replacement Completed 04/29/2019 83181 TKR Total Knee Replacement Completed Medical Devices Description No Information Available Encounters Type Date Location Provider Dx Diagnosis Office Visit 06/14/2019 [facility], Z96.651 Presence of right 10:15a at [facility].D. artificial knee joint Z47.1 Aftercare following joint replacement surgery M25.562 Pain in left knee M25.462 Effusion, left knee M17.12 Unilateral primary osteoarthritis, left knee Office Visit 04/30/2019 10:51a [facility],PROMISE Miramontes (primary) Hospitalists hypertension E78.5 Hyperlipidemia, unspecified Z98.890 Other specified postprocedural states Office Visit 04/29/2019 10:51a [facility] Melvi [facility] [facility],jaime Hernandez M.D. (primary) Hospitalists hypertension E78.5 Hyperlipidemia, unspecified G47.9 Sleep disorder, unspecified Z47.1 Aftercare following joint replacement surgery Z96.651 Presence of right artificial knee joint Office Visit 03/26/2019 2:00p [facility], M25.561 Pain in right at [place] [place] M.D. knee M25.562 Pain in left knee M25.462 Effusion, left knee M25.461 Effusion, right knee M17.0 Bilateral primary osteoarthritis of knee Assessments Date Code Description Provider 09/24/2019 M25.562 Pain in left knee Tasneem Serrano M.D. 09/24/2019 M25.462 Effusion, left knee Tasneem Serrano M.D. 09/24/2019 M17.12 Unilateral primary osteoarthritis, Tasneem Serrano M.D. left knee 06/14/2019 Z96.651 Presence of right artificial knee Tasneem Serrano M.D. joint 06/14/2019 Z47.1 Aftercare following joint Tasneem Serrano M.D. replacement surgery 06/14/2019 M25.562 Pain in left knee Tasneem Serrano M.D. 06/14/2019 M25.462 Effusion, left knee Tasneem Serrano M.D. 06/14/2019 M17.12 Unilateral primary osteoarthritis, Tasneem Serrano M.D. left knee 05/11/2019 Z96.651 Presence of right artificial knee Olive Ferraro RPA-C joint 05/11/2019 Z47.1 Aftercare following joint Olive Ferraro RPA-Geo replacement surgery 04/30/2019 [facility] (primary) hypertension PROMISE Shelton 04/30/2019 E78.5 Hyperlipidemia, unspecified PROMISE Shelton 04/30/2019 Z98.890 Other specified postprocedural PROMISE Shelton states 04/29/2019 M17.11 Unilateral primary osteoarthritis, Sikh HJimmy Garay RPA-C right knee 04/29/2019 M17.11 Unilateral primary osteoarthritis, Tasneem Serrano M.D. right knee 04/29/2019 [facility] (primary) hypertension Melvi Hernandez M.D. 04/29/2019 E78.5 Hyperlipidemia, unspecified Melvi Hernandez M.D. 04/29/2019 G47.9 Sleep disorder, unspecified Melvi Hernandez M.D. 04/29/2019 Z47.1 Aftercare following joint Melvi Hernandez M.D. replacement surgery 04/29/2019 Z96.651 Presence of right artificial knee Melvi Hernandez M.D. joint 04/16/2019 M25.561 Pain in right knee Tasneem Serrano M.D. 04/16/2019 M25.461 Effusion, right knee Tasneem Serrano M.D. 04/16/2019 M17.11 Unilateral primary osteoarthritis, Tasneem Serrano M.D. right knee 03/29/2019 M25.561 Pain in right knee Tasneem Serrano M.D. 03/29/2019 M25.461 Effusion, right knee Tasneem Serrano M.D. 03/29/2019 M17.0 Bilateral primary osteoarthritis of Tasneem Serrano M.D. knee 03/26/2019 M25.561 Pain in right knee Tasneem Serrano M.D. 03/26/2019 M25.562 Pain in left knee Tasneem Serrano M.D. 03/26/2019 M25.462 Effusion, left knee Tasneem Serrano M.D. 03/26/2019 M25.461 Effusion, right knee Tasneem Serrano M.D. 03/26/2019 M17.0 Bilateral primary osteoarthritis of Tasneem Serrano M.D. knee Plan of Treatment Future Appointment(s):10/13/2019 10:15 am - Tasneem Serrano M.D. at [facility] at Mikhod2210/01/2019 10:30 am - Misael Parrish PA-C at [facility] at [id number]/01/2019 10:30 am - Tasneem Serrano M.D. at [facility] at [id number]/24/2019 - Tasneem Serrano M.D.M25.562 Pain in left kneeFollow up:Follow up: 2 weeks after jhcrbomN75.462 Effusion, left kneeM17.12 Unilateral primary osteoarthritis, left knee Functional Status Description No Information Available Mental Status Description No Information Available Referrals Description No Information Available
--- OUTSIDE RECORDS SUMMARY | 2019-10-01 08:35 | XMS REPORT | Continuity of Care Document ---
:1945 External Reference #:[id number] Author Name Stalin Barnett MD Address [address] [place] [id number] Care Team Providers Name Role Phone Jarvis Rojas MD - Urology Care Team Information [employer] [phone] Stalin Barnett MD FACP - Care Team Information [employer] [phone] Internal Medicine Kong Churchill MD - Allergy Care Team Information [employer] Hakeem Castro MD - Surgery Care Team Information [employer] Anirudh Ahuja MD - Facial Plastic Care Team Information [employer] Surgery Tasneem Serrano - Orthopaedic Surgery Care Team Information [employer] Problems Active Problems Provider Date Essential hypertension Stalin Barnett MD Onset: Pure hypercholesterolemia Stalin Barnett MD Onset: Impaired fasting glycaemia Stalin Barnett MD Onset: Benign prostatic hypertrophy with outflow Stalin Barnett MD Onset: obstruction External hemorrhoids without complication Stalin Barnett MD Onset: 2007 Cerebrovascular disease Stalin Barnett MD Onset: 09/28/2008 Localized, primary osteoarthritis Stalin Barnett MD Onset: 12/11/2009 Raised prostate specific antigen Stalin Barnett MD Onset: 03/02/2014 Social History Type Date Description Comments Sex Unknown Tobacco Use Start: Unknown Never Smoked Cigarettes ETOH Use Denies alcohol use Recreational Drug Use Denies Drug Use Tobacco Use Start: Unknown Patient has never smoked Exercise Type/Frequency Exercises regularly Allergies, Adverse Reactions, Alerts Active Allergies Reaction Severity Comments Date Bactrim DS Rash Mild 12/20/2009 Oxycontin Hallucinations Severe 08/23/2019 Inactive Allergies NKDA 08/24/2007 Medications Active Medications SIG Qnty Indications Ordering Date Provider Chlorthalidone take 1 tablet by 30tabs I10 Gant A 10/06/2017 25mg mouth every MD Anibal Tablets morning for high blood pressure Quinapril HCL Take 1 Tablet By 30tabs I10 Gant A 08/24/2015 40mg Mouth Daily For MD Anibal Tablets High Blood Pressure Metoprolol Succinate Take 1 Tablet By 30tabs I10 Gant A 08/16/2014 ER Mouth Daily For MD Anibal 100mg Tablets ER 24HR High Blood Pressure Atorvastatin Calcium Take 1 Tablet By 30tabs E78.0 Gant A 08/27/2012 10mg Mouth Daily For MD Anibal Tablets Elevation Of Cholesterol I67.89 I68.8 Amlodipine Besylate Take 1 Tablet By 30tabs I10 Gant A Anibal, 2010 10mg Mouth One Time Daily Tablets For High Blood Pressure Aspir-81 1 by mouth every day I68.8 Gant A Anibal, 08/26/[address] MD Cunningham once daily Unknown 500mg Capsules Immunizations CPT Code Status Date Vaccine Lot # [id number] Given 06/29/2019 Influenza Vaccine Quadrivalent Preser/Antibiotic Free Im Use 53939 Given 06/19/2018 Influenza Virus Vaccine, Quadrivalent ([id number]), Derived From Cell 98337 Given 06/10/2017 Influenza Vaccine Quadrivalent Preser/Antibiotic Free Im Use 48007 Given 05/22/2016 Influenza Virus Split 3 Yrs And Above For Intramuscular Use 42286 Given 06/16/2014 Influenza Virus Split 3 Yrs And Above For [id number] Flu Vacc Intramuscular Use 33511 Given 09/15/2013 Zoster Shingles Vaccine For Subcutaneous Injection 03656 Given 06/16/2013 Influenza Virus Split 3 Yrs And Above For FLU [id number] Intramuscular Use 53796 Given 08/25/2012 Tdap-Tetanus, Diphtheria Toxoids/Acellular TDAP [id number] Pertussis Vaccine 7+ 23229 Given 08/25/2012 Pneumococcal Vaccine 2Yrs Or Older PNEUMO [id number] 44753 Given 05/27/2012 Influenza Virus Split 3 Yrs And Above For FLU [id number] Intramuscular Use 15834 Given 07/10/2011 Influenza Virus Split 3 Yrs And Above For FLU [id number] Intramuscular Use 73811 Given 07/03/2010 Influenza Virus Split 3 Yrs And Above For FLU [id number] Intramuscular Use 96153 Given 06/16/2009 Influenza Virus Split 3 Yrs And Above For Intramuscular Use 30357 Given 08/01/2008 Influenza Virus Vaccine Split Virus Use For Individual 3Yr Older 42777 Given 12/15/2007 Tetanus Preservative Free For Use In TD [id number] Individuals 7 Yrs Or Older 38904 Given 03/11/2005 Pneumococcal Vaccine 2Yrs Or Older 62361 Refused 08/25/2012 Zoster Shingles Vaccine For Subcutaneous Injection Vital Signs Date Vital Result Comment 04/14/2019 10:05am Body Temperature 98.1 F O2 % BldC Oximetry 96 % Heart Rate 72 /min BP Systolic 145 mmHg BP Diastolic 85 mmHg BMI (Body Mass Index) 29.9 kg/m2 Weight 174.00 lb Height 64 inches 5'4" 03/03/2019 12:18pm Heart Rate 62 /min BP Systolic 145 mmHg BP Diastolic 80 mmHg Results Test Acquired Date Facility Test Result H/L Range Note CBC No Diff 08/21/2019 [facility] White Blood 10.1 10^3/uL Normal 3.5-10.8 [place] [address] Count [phone] Red Blood Count 5.21 10^6/uL Normal 4.18-5.48 Hemoglobin 15.2 g/dL Normal 14.0-18.0 Hematocrit 44 % Normal 42-52 Mean Corpuscular Volume 85 fL Normal 80-94 Mean Corpuscular Hemoglobin 29 pg Normal 27-31 Mean Corpuscular HGB Conc 34 g/dL Normal 31-36 Red Cell Distribution Width 13 % Normal 10-15 Platelet Count 312 10^3/uL Normal 150-450 Mean Platelet Volume 7.6 fL Normal 7.4-10.4 Basic Metabolic 08/21/2019 [facility] Sodium 140 mmol/L Normal 135-145 [place] [address] [phone] Potassium 3.7 mmol/L Normal 3.5-5.0 Chloride 100 mmol/L Low 101-111 Co2 Carbon Dioxide 32 mmol/L Normal 22-32 Anion Gap 8 mmol/L Normal 2-11 Glucose 102 mg/dL High 70-100 Blood Urea Nitrogen 21 mg/dL Normal 6-24 Creatinine 0.98 mg/dL Normal 0.67-1.17 BUN/Creatinine Ratio 21.4 High 8-20 Calcium 9.8 mg/dL Normal 8.6-10.3 Egfr Non- 75.0 >60 Egfr 90.7 >60 1 Laboratory test 08/21/2019 [facility] Hemoglobin A1c 5.7 % High 4.0-5.6 2 [place] [address] (Glyco HGB) [phone] Lyme Disease AB 08/21/2019 [facility] IgG Immunoblot Negative [place] [address] [phone] IgG detected against p66,p41 kDa IgM Immunoblot Negative Negative IgM detected against p23 kDa Lyme Disease Interpretation See Comment 3 Order 04/14/2019 [facility] [place] [address] [phone] Comp Metabolic 04/05/2019 [facility] Sodium 140 mmol/L Normal 135-145 [place] [address] [phone] Potassium 3.6 mmol/L Normal 3.5-5.0 Chloride 99 mmol/L Low 101-111 Co2 Carbon Dioxide 32 mmol/L Normal 22-32 Anion Gap 9 mmol/L Normal 2-11 Glucose 114 mg/dL High 70-100 Blood Urea Nitrogen 19 mg/dL Normal 6-24 Creatinine 1.01 mg/dL Normal 0.67-1.17 BUN/Creatinine Ratio 18.8 Normal 8-20 Calcium 10.0 mg/dL Normal 8.6-10.3 Total Protein 7.3 g/dL Normal 6.4-8.9 Albumin 4.4 g/dL Normal 3.2-5.2 Globulin 2.9 g/dL Normal 2-4 Albumin/Globulin Ratio 1.5 Normal 1-3 Total Bilirubin 0.80 mg/dL Normal 0.2-1.0 Alkaline Phosphatase 62 U/L Normal 34-104 Alt 28 U/L Normal 7-52 Ast 17 U/L Normal 13-39 Egfr Non- 72.6 >60 Egfr 87.9 >60 4 Laboratory test 04/05/2019 [facility] Hemoglobin A1c 5.9 % High 4.0-5.6 5 [place] [address] (Glyco HGB) [phone] PSA Diagnostic 10.174 ng/mL High 0-4.000 6 CBC No Diff 04/05/2019 [facility] White Blood 8.6 10^3/uL Normal 3.5-10.8 [place] [address] Count [phone] Red Blood Count 5.45 10^6/uL Normal 4.18-5.48 Hemoglobin 16.1 g/dL Normal 14.0-18.0 Hematocrit 48 % Normal 42-52 Mean Corpuscular Volume 87 fL Normal 80-94 Mean Corpuscular Hemoglobin 30 pg Normal 27-31 Mean Corpuscular HGB Conc 34 g/dL Normal 31-36 Red Cell Distribution Width 13 % Normal 10-15 Platelet Count 315 10^3/uL Normal 150-450 Mean Platelet Volume 7.6 fL Normal 7.4-10.4 Xray 03/03/2019 [facility] Knee, 3 Views, Bilateral [place] [address] [place] [address] [phone] 1 Because ethnic data is not always readily available, this report includes an eGFR for both -Americans and non- Americans. The National Kidney Disease Education Program (NKDEP) does not endorse the use of the MDRD equation for patients that are not between the ages of 18 and 70, are , have extremes of body size, muscle mass, or nutritional status, or are non- or non-. According to the National Kidney Foundation, irrespective of diagnosis, the stage of the disease is based on the level of kidney function: Stage Description GFR(mL/min/1.73 m(2)) 1 Kidney damage with normal or decreased GFR 90 2 Kidney damage with mild decrease in GFR 60-89 3 Moderate decrease in GFR 30-59 4 Severe decrease in GFR 15-29 5 Kidney failure <15 (or dialysis) 2 Therapeutic target for the treatment of diabetes mellitus patients is <7% HBA1C, and in selective patients <6.0%. Please refer to [place] [employer] Association diabetic care guidelines for further information. 3 Specific serologic response to B. burgdorferi infection is not detected, but cannot rule out early infection during which low or undetectable antibody levels to B. burgdorferi may be present. If clinically indicated, a new serum specimen should be submitted in 7-14 days. ADDITIONAL INFORMATION Per CDC criteria, the Lyme IgG Immunoblot is interpreted as positive if IgG-class antibodies are detected to >=5 B. burgdorferi proteins, and the Lyme IgM Immunoblot is interpreted as positive if IgM-class antibodies are detected to >=2 B. burgdorferi proteins. Immunoblot patterns not meeting these criteria should not be interpreted as positive. Epitopes from certain B. burgdorferi proteins (e.g., p41) are conserved across other bacteria, which may lead to the detection of IgM- and/or IgG-class antibodies on the Lyme disease immunoblots in patients without Lyme disease. Immunoblot should only be ordered on specimens that are positive or equivocal by a FDA-licensed Lyme disease antibody screening test (e.g., EIA). Results of the Lyme IgM immunoblot should not be considered in patients with >= 30 days of symptoms. Test Performed by: [place] [id number] [employer] Worker: Michael Lazaro M.D. Ph.D.; CLIA# [id number] 4 Because ethnic data is not always readily available, this report includes an eGFR for both -Americans and non- Americans. The National Kidney Disease Education Program (NKDEP) does not endorse the use of the MDRD equation for patients that are not between the ages of 18 and 70, are , have extremes of body size, muscle mass, or nutritional status, or are non- or non-. According to the National Kidney Foundation, irrespective of diagnosis, the stage of the disease is based on the level of kidney function: Stage Description GFR(mL/min/1.73 m(2)) 1 Kidney damage with normal or decreased GFR 90 2 Kidney damage with mild decrease in GFR 60-89 3 Moderate decrease in GFR 30-59 4 Severe decrease in GFR 15-29 5 Kidney failure <15 (or dialysis) 5 Therapeutic target for the treatment of diabetes mellitus patients is <7% HBA1C, and in selective patients <6.0%. Please refer to [place] [employer] diabetic care guidelines for further information. 6 Serum levels of PSA measured using the Larissa [place] DXI Hybritech immunoassay should not be interpreted as absolute evidence of the presence or absence of disease. The PSA value should be used in conjunction with other pertinent clinical diagnostic procedures. The values obtained with different assay methods or kits cannot be used interchangeably. Procedures Date Code Description Status 04/14/2019 62840 Electrocardiogram Complete Completed 03/08/2008 45757305 Colonoscopy Completed Medical Devices Description No Information Available Encounters Type Date Location Provider Dx Diagnosis Office Visit 08/23/2019 Main Office Stalin Khan M15.0 Primary generalized 12:20p MD Anibal (osteo)arthritis Office Visit 04/14/2019 Main Office Stalin Khan Z01.818 Encounter for other 10:40a MD Anibal preprocedural examination M17.0 Bilateral primary osteoarthritis of knee I10 Essential (primary) hypertension I68.8 Oth cerebrovascular disorders in diseases classd the rehabilitation instituter R97.20 Elevated prostate specific antigen [PSA] N40.1 Benign prostatic hyperplasia with lower urinary tract symp Office Visit 03/03/2019 12:00p Main Office Stalin Khan M17.0 Bilateral primary MD Anibal osteoarthritis of knee Assessments Date Code Description Provider 08/23/2019 M15.0 Primary generalized (osteo)arthritis Stalin Barnett MD 04/14/2019 Z01.818 Encounter for other preprocedural Stalin Barnett MD examination 04/14/2019 M17.0 Bilateral primary osteoarthritis of knee Stalin Barnett MD 04/14/2019 I10 Essential (primary) hypertension Stalin Barnett MD 04/14/2019 I68.8 Other cerebrovascular disorders in diseases Stalin Barnett MD classified elsew 04/14/2019 R97.20 Elevated prostate specific antigen [PSA] Stalin Barnett MD 04/14/2019 N40.1 Benign prostatic hyperplasia with lower Stalin Barnett MD urinary tract symptoms 03/03/2019 M17.0 Bilateral primary osteoarthritis of knee Stalin Barnett MD Plan of Treatment Future Appointment(s):09/09/2019 9:40 am - Stalin Barnett MD at Main [facility]2408/23/2019 - Stalin Barnett, MDM15.0 Primary generalized (osteo) arthritisComments:Likely cause of his symptoms and not Lyme disease. Labs pending. Functional Status Functional Condition Comment Date Status Glasses Trifocal Active Hearing Aid in Both ears Active Mental Status Description No Information Available Referrals Refer to Reason for Referral Status Appt Date Tasneem Serrano Closed 03/26/2019 16 [facility] [place] [id number] [phone]
--- OUTSIDE RECORDS SUMMARY | 2019-10-01 08:35 | XMS REPORT | Continuity of Care Document ---
:1945 External Reference #:[id number] Author Name Stalin Barnett MD Address [address] [place] [id number] Care Team Providers Name Role Phone Jarvis Rojas MD - Urology Care Team Information [employer] [phone] Stalin Barnett MD FACP - Care Team Information [employer] [phone] Internal Medicine Kong Churchill MD - Allergy Care Team Information [employer] Hakeem Castro MD - Surgery Care Team Information [employer] [phone] Anirudh Ahuja MD - Facial Plastic Care Team Information [employer] Surgery Tasneem Serrano - Orthopaedic Surgery Care Team Information [employer] [phone] Problems Active Problems Provider Date Essential hypertension [...] CPT Code Status Date Vaccine Lot # 36090 Given 06/29/2019 Influenza Vaccine Quadrivalent Preser/Antibiotic Free Im Use 55773 Given 06/19/2018 Influenza Virus Vaccine, Quadrivalent ([id number]), Derived From Cell 80053 Given 06/10/2017 Influenza Vaccine Quadrivalent Preser/Antibiotic Free Im Use 78468 Given 05/22/2016 Influenza Virus Split 3 Yrs And Above For Intramuscular Use 33548 Given 06/16/2014 Influenza Virus Split 3 Yrs And Above For [id number] Flu Vacc Intramuscular Use 04638 Given 09/15/2013 Zoster Shingles Vaccine For Subcutaneous Injection 08216 Given 06/16/2013 Influenza Virus Split 3 Yrs And Above For FLU [id number] Intramuscular Use 14012 Given 08/25/2012 Tdap-Tetanus, Diphtheria Toxoids/Acellular TDAP [id number] Pertussis Vaccine 7+ 19468 Given 08/25/2012 Pneumococcal Vaccine 2Yrs Or Older PNEUMO [id number] 89167 Given 05/27/2012 Influenza Virus Split 3 Yrs And Above For FLU [id number] Intramuscular Use 05867 Given 07/10/2011 Influenza Virus Split 3 Yrs And Above For FLU [id number] Intramuscular Use 67491 Given 07/03/2010 Influenza Virus Split 3 Yrs And Above For FLU [id number] Intramuscular Use 00494 Given 06/16/2009 Influenza Virus Split 3 Yrs And Above For Intramuscular Use 09900 Given 08/01/2008 Influenza Virus Vaccine Split Virus Use For Individual 3Yr Older 45554 Given 12/15/2007 Tetanus Preservative Free For Use In TD [id number] Individuals 7 Yrs Or Older 29646 Given 03/11/2005 Pneumococcal Vaccine 2Yrs Or Older 19446 Refused 08/25/2012 Zoster Shingles Vaccine For Subcutaneous Injection Vital Signs Date Vital Result Comment 09/09/2019 9:12am Body Temperature 97.9 F O2 % BldC Oximetry 97 % Heart Rate 68 /min BP Systolic 140 mmHg BP Diastolic 80 mmHg Weight 170.00 lb 04/14/2019 10:05am Body Temperature 98.1 F O2 % BldC Oximetry 96 % Heart Rate 72 /min BP Systolic 145 mmHg BP Diastolic 85 mmHg BMI (Body Mass Index) 29.9 kg/m2 Weight 174.00 lb Height 64 inches 5'4" Results Test Acquired Date Facility Test Result H/L Range Note CBC No Diff 08/21/2019 [facility] White Blood 10.1 10^3/uL Normal 3.5-10.8 [place] [address] Count [phone] Red Blood Count 5.21 10^6/uL Normal 4.18-5.48 Hemoglobin 15.2 g/dL Normal 14.0-18.0 Hematocrit 44 % Normal 42-52 Mean Corpuscular Volume 85 fL Normal 80-94 Mean Corpuscular Hemoglobin 29 pg Normal 27-31 Mean Corpuscular HGB Conc 34 g/dL Normal 31-36 Red Cell Distribution Width 13 % Normal 10-15 Platelet Count 312 10^3/uL Normal 150-450 Mean Platelet Volume 7.6 fL Normal 7.4-10.4 Basic Metabolic 08/21/2019 [facility] Sodium 140 mmol/L Normal 135-145 [place] [address] [phone] Potassium 3.7 mmol/L Normal 3.5-5.0 Chloride 100 mmol/L Low 101-111 Co2 Carbon Dioxide 32 mmol/L Normal 22-32 Anion Gap 8 mmol/L Normal 2-11 Glucose 102 mg/dL High 70-100 Blood Urea Nitrogen 21 mg/dL Normal 6-24 Creatinine 0.98 mg/dL Normal 0.67-1.17 BUN/Creatinine Ratio 21.4 High 8-20 Calcium 9.8 mg/dL Normal 8.6-10.3 Egfr Non- 75.0 >60 Egfr 90.7 >60 1 Laboratory test 08/21/2019 [facility] Hemoglobin A1c 5.7 % High 4.0-5.6 2 [place] [address] (Glyco HGB) [phone] Lyme Disease AB 08/21/2019 [facility] IgG Immunoblot Negative [place] [address] [phone] IgG detected against p66,p41 kDa IgM Immunoblot Negative Negative IgM detected against p23 kDa Lyme Disease Interpretation See Comment 3 Order 04/14/2019 [facility] [place] [address] [phone] Comp Metabolic 04/05/2019 [facility] Sodium 140 mmol/L Normal 135-145 [place] [address] [phone] Potassium 3.6 mmol/L Normal 3.5-5.0 Chloride 99 [...] Egfr 87.9 >60 4 Laboratory test 04/05/2019 [facility] Hemoglobin A1c 5.9 % High 4.0-5.6 5 [place] [address] (Glyco HGB) [phone] PSA Diagnostic 10.174 ng/mL High 0-4.000 6 CBC No Diff 04/05/2019 [facility] White Blood 8.6 10^3/uL Normal 3.5-10.8 [place] [address] Count [phone] Red Blood Count 5.45 10^6/uL Normal 4.18-5.48 Hemoglobin 16.1 g/dL Normal 14.0-18.0 Hematocrit 48 % Normal 42-52 Mean Corpuscular Volume 87 fL Normal 80-94 Mean Corpuscular Hemoglobin 30 pg Normal 27-31 Mean Corpuscular HGB Conc 34 g/dL Normal 31-36 Red Cell Distribution Width 13 % Normal 10-15 Platelet Count 315 10^3/uL Normal 150-450 Mean Platelet Volume 7.6 fL Normal 7.4-10.4 1 Because ethnic data is not always [...] in selective patients <6.0%. Please refer to [place] Diabetes Association diabetic care guidelines for further [...] 30 days of symptoms. Test Performed by: [place] [address] [place] [address] Planning Supervisor: Michael Lazaro M.D. Ph.D.; IA# [id number] 4 Because ethnic data is not always [...] in selective patients <6.0%. Please refer to [place] [employer] Association diabetic care guidelines for further information. 6 Serum levels of PSA measured using the Larissa [place] DXI Hybritech immunoassay should not be interpreted as absolute evidence of the presence or absence of disease. The PSA value should be used in conjunction with other pertinent clinical diagnostic procedures. The values obtained with different assay methods or kits cannot be used interchangeably. Procedures Date Code Description Status 04/14/2019 94656 Electrocardiogram Complete Completed 03/08/2008 49021821 Colonoscopy Completed Medical Devices Description No Information Available Encounters Type Date Location Provider Dx Diagnosis Office Visit 09/09/2019 Main Office Stalin Khan Z01.818 Encounter for other 9:40a MD Anibal preprocedural examination M17.0 Bilateral primary osteoarthritis of knee I10 Essential (primary) hypertension I68.8 Oth cerebrovascular disorders in diseases classd elswhr N40.1 Benign prostatic hyperplasia with lower urinary tract symp R97.20 Elevated prostate specific antigen [PSA] Office Visit 08/23/2019 Main Office Stalin Khan M15.0 Primary generalized 12:20p MD Anibal (osteo)arthritis Office Visit 04/14/2019 Main Office Stalin Khan Z01.818 Encounter for other 10:40a MD Anibal preprocedural examination M17.0 Bilateral primary osteoarthritis of knee I10 Essential (primary) hypertension I68.8 Oth cerebrovascular disorders in diseases classd elswhr R97.20 Elevated prostate specific antigen [PSA] N40.1 Benign prostatic hyperplasia with lower urinary tract symp Assessments Date Code Description Provider 09/09/2019 Z01.818 Encounter for other preprocedural Stalin Barnett MD examination 09/09/2019 M17.0 Bilateral primary osteoarthritis of knee Stalin Barnett MD 09/09/2019 I10 Essential (primary) hypertension Stalin Barnett MD 09/09/2019 I68.8 Other cerebrovascular disorders in diseases Stalin Barnett MD classified elsew 09/09/2019 N40.1 Benign prostatic hyperplasia with lower Stalin Barnett MD urinary tract symptoms 09/09/2019 R97.20 Elevated prostate specific antigen [PSA] Stalin Barnett MD 08/23/2019 M15.0 Primary generalized (osteo)arthritis Stalin Barnett [...] lower Stalin Barnett MD urinary tract symptoms Plan of Treatment Future Appointment(s):12/01/2019 11:00 am - Stalin Barnett MD at Main Yztqvw9809/09/2019 - Stalin Barnett MDZ01.818 Encounter for other preprocedural examinationComments:Asymptomatic moderate risk patient with good functional capacity and stable state for moderate risk elective surgery.Normal recent labs and normal EKG as of March 2019.No further labs or tests needed.Nocontraindications for surgery. Please call me with concerns or questions.M17.0 Bilateral primary osteoarthritis of kneeI10 Essential (primary) mzmkurlrywkaN30.8 Other cerebrovascular disorders in diseases classified yqxtbI89.1 Benign prostatic hyperplasia with lower urinary tract flgtlufsW76.20 Elevated prostate specific antigen [PSA] Functional Status Functional Condition Comment Date Status Glasses Trifocal Active Hearing Aid in Both ears Active Mental Status Description No Information Available Referrals Description No Information Available
[2019-10-01] MEDS ORDERED: ceFAZolin 2 GM PREMIX in ORs 2 GM/50 ML BAG ONE (08:59)
[2019-10-01] MEDS ORDERED: ROPIVACAINE 5 MG/ML 30 ML BTL (0.5%) ONE ×2 (11:06→11:22)
[2019-10-01] MEDS ORDERED: Midazolam* 1 MG/ML 5 ML VIAL (5 MG) ONE (11:08)
[2019-10-01] MEDS ORDERED: Propofol* 10 MG/ML 20 ML BTL ONE ×3 (11:24→13:00)
[2019-10-01] MEDS ORDERED: fentaNYL* 50 MCG/ML 2 ML VIAL (100 MCG VIAL) ONE (11:24)
[2019-10-01] MEDS ORDERED: HYDROmorphone INJ1* 1 MG/ML SYRINGE IV PRN (11:51)
[2019-10-01] MEDS ORDERED: Naloxone* 0.4 MG/ML 1 ML VIAL IV PRN (11:51)
[2019-10-01] MEDS ORDERED: Ondansetron INJ* 2 MG/ML VIAL IV PRN ×2 (11:51→13:54)
[2019-10-01] MEDS ORDERED: EPHEDrine (Pressors)* 50 MG/ML VIAL ONE (12:06)
[2019-10-01] MEDS ORDERED: diPHENhydraMINE PO* 25 MG PO PRN (13:54)
[2019-10-01] MEDS ORDERED: Ondansetron ODT TAB* 4 MG PO PRN (13:54)
[2019-10-01] MEDS ORDERED: Temazepam CAP* 15 MG PO PRN (13:54)
[2019-10-01] MEDS ORDERED: diPHENhydraMINE IV* 50 MG/ML 1 ml VIAL (BENADRYL) IV PRN (13:54)
[2019-10-01] MEDS ORDERED: Polyethylene Glycol 3350* 17 GM PACKET PO PRN (13:54)
[2019-10-01] MEDS ORDERED: Magnesium Hydroxide LIQ* 30 ML UDC PO PRN (13:54)
[2019-10-01] MEDS ORDERED: HYDROcodone/ACETAMIN 5-325 MG* 1 TAB PO PRN (14:01)
--- NOTE | 2019-10-01 14:51 | OP ---
Operative Report - Blank - Operative Report Date of Operation: 10/01/19 Note: KEE CANO 1945 Date of Surgery: 10/01/19 Tasneem Serrano MD Director Of Operations Support: Renee VIRGEN did help throughout the procedure with preparation of the knee, wound retraction, manipulation of the knee, and wound closure. Anesthesiologist: Dr. Fischer Anesthesia Type: Spinal Preoperative Diagnosis: Left severe degenerative osteoarthritis of the knee Postoperative Diagnosis: As above Procedure Performed: Left Total Knee Arthroplasty Tourniquet time: 47 minutes Complications: None Specimen: Bone and cartilage from the left knee joint sent to pathology. Hardware Used: Cemented [employer]hew total knee hardware was used - For the femur a size 6 narrow left legion posterior stabilized femoral component, for the tibia a size 5 left odalis II tibial baseplate, for the insert a size 9mm 5 -6 posterior stabilized articular polyethylene insert, and for the patella a size 35 3-peg all poly patella. Brief History/Indication: KEE CANO was known in clinic and had a history of severe left knee pain and swelling. He failed conservative treatment with anti- inflammatories, pain pills, intra-articular injections and physical therapy. He elected to undergo left total knee arthroplasty due to continued pain and decreased quality of life. Radiographs showed severe end stage osteoarthritis of the knee with bone on bone contact. Informed consent was obtained from the patient. He understood the risks of surgery included but were not limited to: bleeding, infection, damage to nearby structures, intraoperative fracture, nerve palsy, failure of the hardware, early loosening, knee stiffness or loss of motion, anesthesia complications, stroke, heart attack, blood clot and . He wished to proceed. Intra-Operative Findings: Intraoperatively the patient was noted to have severe loss of cartilage in all 3 compartments of the knee. Description of the Procedure: KEE CANO was identified in the preanesthesia unit. His left knee was marked as the correct operative side. Informed consent was signed and placed in the chart. The patient was taken to the operating room and placed under anesthesia without complication. A landin catheter was placed. A tourniquet was placed on the left thigh. The left lower extremity was prepped and draped in the usual sterile fashion. Preoperative time-out was made to correctly identify the patient, side and site. Appropriate intraoperative antibiotics were given within one hour of incision. Tourniquet was inflated. A midline incision was made and carried sharply down to the extensor mechanism. A new 10 blade was used to make a standard medial parapatellar arthrotomy. The patella was subluxed laterally. Electrocautery was used to dissect soft tissue off the superomedial tibia to the midsagittal plane. The knee was flexed up. The anterior horn of the lateral meniscus and the ACL were sharply incised. A drill was used to enter the distal femur. The intramedullary distal femoral cutting guide was pinned on the distal femur. The oscillating saw was used to make the distal femoral cut. The external rotation guide was pinned on the distal femur and the distal femur was sized to a size 6. The size 6 multi-cutting jig was pinned on the distal femur. The oscillating saw was used to make the appropriate 4 chamfer cuts. Next the PCL was completely released. The extramedullary tibial cutting guide was pinned on the proximal tibia and the oscillating saw was used to make the proximal tibial cut perpendicular to the mechanical axis of the tibia. The bone was carefully removed. The knee was brought out into full extension. The spacer block was placed and had excellent fit with the knee in full extension. The medial and lateral ligaments were well balanced. The flexion and extension gaps were well balanced. The knee was flexed up. Lamina bonbon dipper was placed both medially and laterally. Any remaining meniscus was removed with electrocautery. Curved osteotome was used to remove any posterior osteophytes. The tibial tray and drop vanesa were placed and confirmed a satisfactory tibial cut. The size 6 narrow left femoral trial was impacted onto the distal femur. This trial had excellent fit and stability. The box for the posterior stabilized implant was prepared using a box cut osteotome and a reamer. Next a tibial tray trial and 9 mm insert trial was placed. The knee was taken through a range of motion and had full extension to 130 degrees of flexion. Patellofemoral tracking was satisfactory. The patella was inverted and sized to a size 35. Three peg holes were drilled through the size 35 drill guide. The trial patella was placed and the knee was taken through a range of motion. There was satisfactory patellofemoral tracking. All trials were removed. The tibia was subluxed anteriorly and sized to a size 5. The proximal tibial was prepared with a size 5 keel punch. All bony cut surfaces were irrigated with sterile saline and dried. Final implants were cemented into place starting with the tibia, followed by the femur, and last the patella. A 9 mm insert trial was placed and the knee was brought into full extension. Tourniquet was turned down and the knee was copiously irrigated with sterile saline. Electrocautery was used to obtain meticulous hemostasis. Once the cement had fully cured, the insert trial was removed. Any excess cement was removed from around the hardware and capsule. Final insert chosen was a 9 mm posterior stabilized Odalis II articular insert size 5-6. Stability of the insert was checked and noted to be stable. The extensor mechanism was closed using number 1 vicryls. The rest of the incision was closed in a layered fashion using 0 and 2-0 vicryls. The skin was closed using 3-0 nylon suture. Sterile xeroform, 4x4s and webril were used to cover the incision. Dennys wrap and cold pack were used to cover the dressings. The patients anesthesia was reversed without difficulty. He was taken to the PACU in stable condition. Intended weight-bearing will be as tolerated.
[2019-10-01] MEDS: Lactated Ringers 1000 ML Bag* 1,000 ML IV SCH (15:20)
[2019-10-01] MEDS: traMADol TAB* 50 MG PO PRN ×2 (15:32→21:28)
[2019-10-01] MEDS: HYDROcodone/ACETAMIN 5-325 MG* 1 TAB PO PRN ×3 (15:48→23:58)
[2019-10-01] MEDS: Acetaminophen TAB* 325 MG PO SCH ×2 (16:01→22:11)
[2019-10-01] MEDS: Cyclobenzaprine TAB* 10 MG PO PRN (17:40)
--- NOTE | 2019-10-01 17:42 | CONS ---
CC: Dr. Serrnao; Dr. Barnett * CONSULTATION REPORT: DATE OF CONSULT: 10/01/19 PRIMARY CARE PROVIDER: Dr. Barnett. ORTHOPEDIC SURGEON: Dr. Serrano. REQUESTING PROVIDER: Dr. Serrano. REASON FOR CONSULT: Medical co-management. HISTORY OF PRESENT ILLNESS: Mr. Reid is a 74-year-old male who underwent left total knee arthroplasty with Dr. Serrano on 10/01/19. This was for end-stage osteoarthritis of the left knee. Currently, the patient states that he is feeling quite well. He has no pain in the knee, but does feel some perhaps burning discomfort as if the blanket is lying on the incision. Overall, his biggest complaint at this point is that he feels hungry. He has no nausea. He no chest pain or shortness of breath. There have been no issues with bowel or bladder. PAST MEDICAL HISTORY: 1. Hypertension. 2. Hypercholesterolemia. PAST SURGICAL HISTORY: 1. Tonsillectomy. 2. Hernia repair. 3. Appendectomy. 4. Nasal surgery. 5. Right total knee arthroplasty. 6. Excision of basal cell carcinoma. HOME MEDICATIONS: 1. Lipitor 10 mg p.o. daily. 2. Chlorthalidone 25 mg p.o. daily. 3. Quinapril 40 mg p.o. daily. 4. Amlodipine 10 mg p.o. daily. 5. Metoprolol succinate 100 mg p.o. daily. 6. Aspirin 325 mg p.o. q.h.s. 7. Tylenol 650 mg p.o. q.6 hours p.r.n. pain. 8. Multivitamin 1 tab p.o. daily. ALLERGIES: No known drug allergies. FAMILY HISTORY: Positive for CVA and cancer. SOCIAL HISTORY: The patient is . He lives alone. He is retired. He has 1 adopted daughter. He does not smoke. He does not drink alcohol. REVIEW OF SYSTEMS: A complete 11-system review of systems is obtained. Pertinent positives and negatives are as per HPI and otherwise negative. PHYSICAL EXAM: Blood pressure 119/61, pulse 45, respirations 19, temp 98.2, O2 sat 98% on room air. General: The patient is a well-developed, elderly male seen lying flat in the stretcher, in no acute distress. HEENT: Pupils are equal. Extraocular muscles are intact. Oropharynx is clear and moist. Cardiac : Normal S1, S2. Heart rate is bradycardic. I do not appreciate any murmurs. There is no lower extremity edema. Pulmonary: Lungs are clear to auscultation bilaterally anteriorly. Abdomen: Bowel sounds are present. Abdomen is soft, nontender, nondistended. Musculoskeletal: Left knee is in postop dressing. There are SCDs on the lower extremities. Range of motion is not tested of the lower extremities. Upper extremity range of motion is intact and symmetrical throughout. Skin: Visible areas of skin are warm, dry, and without rash. Neuro : Cranial nerves II through XII are grossly intact. Sensation is intact to light touch throughout. Strength of the upper extremities is normal and symmetric bilaterally. Lower extremity strength is not tested at this time. Psych: The patient is alert. He is oriented x3. Affect appears appropriate. ASSESSMENT AND PLAN: Mr. Reid is a 74-year-old male with a history of hypertension and hyperlipidemia, who underwent left total knee arthroplasty with Dr. Serrano today and now is being seen by the hospitalist service for medical co- management. 1. Left total knee arthroplasty. Management of pain and DVT prophylaxis as well as postoperative course is as per Orthopedics. 2. Hypertension. Blood pressure is under excellent control. He took all of his medications on the day of surgery. We will continue amlodipine 10 mg daily , metoprolol XL 100 mg daily, quinapril 40 mg daily, and hold chlorthalidone 25 mg daily for now. If his blood pressure is up tomorrow, this will be added back. 3. Hyperlipidemia. Continue Lipitor 10 mg at bedtime. 4. DVT prophylaxis: Eliquis 2.5 mg p.o. b.i.d. is scheduled to be started on . 5. The patient is a full code. TIME SPENT: Forty five minutes was spent on this consultation. [id number]/[facility] #: [id number] ESTHER
[2019-10-01] MEDS: Morphine INJ* 2 MG/ML 1 ML SYRINGE (TWO MG - NEW SYRINGE VERSION) IV PRN ×2 (18:41→23:04)
[2019-10-01] MEDS: ceFAZolin 1 GM ADVAN(*) 1 GM in NS 0.9% 50 ML* 50 ML IVPB SCH (19:56)
[2019-10-01] MEDS: Docusate CAP* 100 MG PO SCH (21:00)
[2019-10-01] MEDS ORDERED: Atorvastatin* 10 MG TAB PO SCH (21:00)
[2019-10-01] MEDS: Magnesium Hydroxide LIQ* 30 ML UDC PO SCH ×2 (21:00→21:01)
[2019-10-02] MEDS: Lactated Ringers 1000 ML Bag* 1,000 ML IV SCH (01:46)
[2019-10-02] MEDS: HYDROcodone/ACETAMIN 5-325 MG* 1 TAB PO PRN ×2 (04:07→08:12)
[2019-10-02] MEDS: ceFAZolin 1 GM ADVAN(*) 1 GM in NS 0.9% 50 ML* 50 ML IVPB SCH ×2 (04:08→10:24)
[2019-10-02 05:07] LABS: Hematocrit 36 % (42-52); Hemoglobin 12.7 g/dL (14.0-18.0); Mean Platelet Volume 7.1 fL (7.4-10.4); Platelet Count 259 10^3/uL (150-450)
[2019-10-02] MEDS: Acetaminophen TAB* 325 MG PO SCH (05:19)
[2019-10-02 05:23] LABS: BUN/Creatinine Ratio 17.2 (8-20); Calcium 8.6 mg/dL (8.6-10.3); EGFR African American 104.1 (>60); Potassium 3.2 mmol/L (3.5-5.0)
[2019-10-02] MEDS: Magnesium Hydroxide LIQ* 30 ML UDC PO SCH (08:11)
[2019-10-02] MEDS: Docusate CAP* 100 MG PO SCH (08:12)
--- NOTE | 2019-10-02 08:33 | PN ---
Subjective Date of Service: 10/02/19 Interval History: Mr. Reid states that he is feeling well this morning and is eager for discharge to beat the predicted bad winter weather. He continues to have pain in his knee but is is manageable with the current pain regimen. Objective Active Medications: Acetaminophen (Tylenol Tab*) 975 mg PO Q8HR SALAZAR Hydrocodone Bitart/Acetaminophen (Bandy 5-325 Tab*) 1 tab PO Q4H PRN Hydrocodone Bitart/Acetaminophen (Bandy 5-325 Tab*) 2 tab PO Q4H PRN Amlodipine Besylate (Norvasc Tab*) 10 mg PO QAM SALAZAR Apixaban (Eliquis*) 2.5 mg PO BID SALAZAR Atorvastatin Calcium (Lipitor*) 10 mg PO BEDTIME SALAZAR Bisacodyl (Dulcolax Supp*) 10 mg RI DAILY PRN Chlorthalidone (Hygroton Tab*) 25 mg PO QAM SALAZAR Cyclobenzaprine HCl (Flexeril Tab*) 10 mg PO Q6H PRN Diphenhydramine HCl (Benadryl Iv*) 25 mg IV Q6H PRN Diphenhydramine HCl (Benadryl Po*) 25 mg PO Q6H PRN Docusate Sodium (Colace Cap*) 100 mg PO BID SALAZAR Cefazolin Sodium 1 gm/ Sodium (Chloride) 50 mls @ 200 mls/hr IVPB Q8H SALAZAR Lactated Ringer's (Lactated Ringers 1000 Ml Bag*) 1,000 mls @ 100 mls/hr IV PER RATE SALAZAR Lactulose (Lactulose*) 30 ml PO BID PRN Lisinopril (Prinivil Tab*) 40 mg PO QAM SALAZAR Magnesium Hydroxide (Milk Of Magnesia Liq*) 30 ml PO BID SALAZAR Magnesium Hydroxide (Milk Of Magnesia Liq*) 30 ml PO Q6H PRN Metoprolol Succinate (Toprol Xl Tab*) 100 mg PO QAM SALAZAR Morphine Sulfate (Morphine Inj (Syringe))*) 2 mg IV Q4H PRN Ondansetron HCl (Zofran Inj*) 4 mg IV Q6H PRN Ondansetron HCl (Zofran Odt Tab*) 4 mg PO Q6H PRN Polyethylene Glycol/Electrolytes (Miralax*) 17 gm PO DAILY PRN Temazepam (Restoril Cap*) 15 mg PO BEDTIME PRN Tramadol HCl (Ultram*) 50 mg PO Q6H PRN Vital Signs: Temp Pulse Resp BP Pulse Ox 98.6 F 91 18 152/76 95 10/02/19 07:38 10/02/19 07:38 10/02/19 08:12 10/02/19 07:38 10/02/19 08:00 Oxygen Devices in Use Now: None Appearance: Male sitting up in bed in NAD Eyes: No Scleral Icterus Ears/Nose/Mouth/Throat: Mucous Membranes Moist Neck: Trachea Midline Respiratory: Symmetrical Chest Expansion and Respiratory Effort Cardiovascular: NL Sounds; No Murmurs; No JVD, No Edema Abdominal: NL Sounds; No Tenderness; No Distention Extremities: No Edema Skin: No Rash or Ulcers Neurological: Alert and Oriented x 3, NL Muscle Strength and Tone Nutrition: Taking PO's Result Diagrams: 10/02/19 05:00 10/02/19 05:00 Assess/Plan/Problems-Billing Assessment: Mr. Reid is a 74 yo M with a PMH of hypertension and hypercholesterolemia who was admitted on 10/01/19 for left TKA by Dr Serrano, [facility] has been consulted regarding medical co-management. - Patient Problems (1) Status post total left knee replacement Comment: - Management per ortho - Pains meds prn with bowel regimen - Monitor H/H, Hgb 12.87 - PT/OT (2) HTN (hypertension) Comment: - Normotensive, continue amlodipine, lisinopril, and metoprolol (3) HLD (hyperlipidemia) Comment: - Continue statin. (4) Hypokalemia Comment: - K repleted per ortho (5) DVT prophylaxis Comment: - Eliquis Per Ortho (6) Full code status Comment: Status and Disposition: Inpatient, plan for discharge home today per ortho
[2019-10-02] MEDS ORDERED: amLODIPine TAB* 5 MG PO SCH (09:00)
[2019-10-02] MEDS ORDERED: Metoprolol Succinate XL TAB* 100 MG PO SCH (09:00)
[2019-10-02] MEDS ORDERED: Lisinopril TAB* 10 MG PO SCH (09:00)
[2019-10-02] MEDS ORDERED: Chlorthalidone TAB* 50 MG PO SCH (09:00)
[2019-10-02] MEDS ORDERED: Apixaban* 2.5 MG TAB PO SCH (09:00)
[2019-10-02] MEDS: traMADol TAB* 50 MG PO PRN (10:31)
[2019-10-02] MEDS: Cyclobenzaprine TAB* 10 MG PO PRN (10:31)
[2019-10-02] MEDS ORDERED: Potassium Chlor TAB* 20 MEQ TAB.ER PO ONE (10:45)
--- NOTE | 2019-10-02 10:57 | PN ---
Progress Note - Progress Note Date of Service: 10/02/19 SOAP: Subjective: Pt seen and examined at bedside. Doing well. States pain is tolerable with pain medications. No complaint otherwise. Denies CP, SOB, F/C. Vital Signs: Temp Pulse Resp BP Pulse Ox 98.6 F 91 18 152/76 95 10/02/19 07:38 10/02/19 07:38 10/02/19 10:33 10/02/19 07:38 10/02/19 08:00 Laboratory Last Values Hgb 12.7 g/dL (14.0-18.0) L 10/02/19 05:00 Hct 36 % (42-52) L 10/02/19 05:00 Plt Count 259 10^3/uL (150-450) 10/02/19 05:00 MPV 7.1 fL (7.4-10.4) L 10/02/19 05:00 Sodium 136 mmol/L (135-145) 10/02/19 05:00 Potassium 3.2 mmol/L (3.5-5.0) L 10/02/19 05:00 Chloride 100 mmol/L (101-111) L 10/02/19 05:00 Carbon Dioxide 29 mmol/L (22-32) 10/02/19 05:00 Anion Gap 7 mmol/L (2-11) 10/02/19 05:00 BUN 15 mg/dL (6-24) 10/02/19 05:00 Creatinine 0.87 mg/dL (0.67-1.17) 10/02/19 05:00 Est GFR ( Amer) 104.1 (>60) 10/02/19 05:00 Est GFR (Non-Af Amer) 86.0 (>60) 10/02/19 05:00 BUN/Creatinine Ratio 17.2 (8-20) 10/02/19 05:00 Glucose 123 mg/dL (70-100) H 10/02/19 05:00 Calcium 8.6 mg/dL (8.6-10.3) 10/02/19 05:00 Objective: A&O x3, NAD Dressing changed, Incision C/D/I, Calves soft and nontender, No edema, NVI distally. Assessment: 74 yo male s/p left TKA POD #1 Plan: OOB, PT/OT WBAT Pain control DVT prophylaxis - Eliquis 2.5mg BID IV abx - will send 3 days of Keflex Hypokalemia - Klor-con PO x 2 days D/C home today
[2019-10-02 11:19] VITALS: BP 142/73
--- NOTE | 2019-10-02 11:37 | DS ---
Orthopedic Discharge Summary - Discharge Summary Date of Admission:10/01/19 Date of Discharge: 10/02/19 Date of Surgery: 10/01/19 Attending Orthopedic Provider: Tasneem Serrano MD Pre-operative Diagnosis: Left knee osteoarthritis Operative Procedure: Left total knee replacement Disposition of Patient: Home Condition of Patient: Stable History: KEE CANO is a 74 year old M with years of increasingly severe Left knee pain. Patient has failed conservative management and has elected to undergo a Left total knee replacement Hospital Course: KEE was admitted to [facility] on 10/01/19. Patient underwent a Left total knee replacement without complication followed by a brief recovery in PACU and transfer to the Short Stay Surgical Unit in stable condition. Our hospitalist service, physical therapy and occupational therapy also participated in this patients care. Post-op day 1: patient was alert and in no acute distress. Dressing was clean, dry and intact. Operative extremity dorsiflexion and plantarflexion intact, sensation intact to light touch distally, DP2+. Dressing was changed, incision was clean, dry and intact. Patient was deemed to be medically and orthopedically stable for discharge. Physical therapy goals were met. The patient was discharged home in a stable condition. Home Medications Medication Instructions Recorded Confirmed Type Atorvastatin* [Lipitor 10 MG*] 10 mg PO BEDTIME 12/19/15 10/01/19 History Multivitamin [One Daily] 1 tab PO QAM 12/19/15 10/01/19 History amLODIPine TAB* [Norvasc 5 mg TAB*] 10 mg PO QAM 12/19/15 10/01/19 History Chlorthalidone 25 mg PO QAM 04/16/19 10/01/19 History Metoprolol Succinate 100 mg PO QAM 04/16/19 10/01/19 History Quinapril HCl 40 mg PO QAM 04/16/19 10/01/19 History Acetaminophen [Tylenol] 650 mg PO Q6H PRN 09/24/19 10/01/19 History Aspirin EC TAB* [Ecotrin EC TAB*] 325 mg PO BEDTIME 09/24/19 10/01/19 History Apixaban* [Eliquis*] 2.5 mg PO BID tab 10/02/19 Rx Cyclobenzaprine TAB* [Flexeril 10 10 mg PO Q6H PRN tab 10/02/19 Rx MG TAB*] Docusate CAP* [Colace Cap*] 100 mg PO BID cap 10/02/19 Rx HYDROcodone/ACETAMIN 5-325 MG* 1 tab PO Q4H PRN tab 10/02/19 Rx [Spur 5-325 TAB*] HYDROcodone/ACETAMIN 5-325 MG* 2 tab PO Q4H PRN tab 10/02/19 Rx [Spur 5-325 TAB*] Discharge Instructions following Orthopedic Surgery: Activity: * Weight Bearing as tolerated * Continue physical therapy and occupational therapy exercises as shown Wound care: * OK to shower on post-op day 3, no bathing, swimming, or submerging wound. * Use gentle soap, pat dry. Cover with gauze, BRANDEE wrap or tape. * Visiting home nurse to do wound checks. Call Orthopedic office for: * Increased drainage * Redness * Increased pain * Fever Go to ER with shortness of breath or chest pain. Diet: * Regular diet * Increase fluids and fiber to prevent constipation. * Continue to use stool softeners, call office if no bowel motion within 48 hours. Medications See Home Medication List in your packet for medications that you should take after discharge. DVT Prophylaxis: Asprin Dosin mg, 1 tab every 12 hours x 30 days Pain Control: Spur Dosin/325 mg 1-2 tabs by mouth every 4-6 hours as needed for pain. Maximum of 10 tabs per day. Cyclobenzoprine 10mg three times a day as needed for muscle spasm. Potassium: Klor-con 20 mEq twice a day for 2 days Please note that Spur contains Tylenol (acetaminophen). Maximum daily dose of Tylenol is 4000 mg from all sources. Antibiotics are required prior to any dental work. Keflex 500mg 4 times a day for 3 days FOLLOW UP: Follow up with Dr. Serrano Within 10-14 days, call for appointment Please call our office with any questions or concerns ([phone])
== END 2019-10-02 12:22 | disposition home or self-care (01) ==
LOC: AA 08:31 → INTOOBSV 08:31 → SSU 13:54
PROVIDERS: ADMIT Orthopaedic Surgery Adult Reconstructive Orthopaedic Surgery; ATTEND Orthopaedic Surgery Adult Reconstructive Orthopaedic Surgery
DX: M17.12 Unilateral primary osteoarthritis, left knee (principal); I10 Essential (primary) hypertension; E78.00 Pure hypercholesterolemia, unspecified; I68.8 Other cerebrovascular disorders in diseases classified elsewhere; N40.1 Benign prostatic hyperplasia with lower urinary tract symptoms; R97.20 Elevated prostate specific antigen [PSA]; C44.91 Basal cell carcinoma of skin, unspecified; Z79.82 Long term (current) use of aspirin; Z79.899 Other long term (current) drug therapy
CPT/HCPCS: 36415; 80048; 85014; 85018; 85049; 96374; A9270-GY; C1776; G0378; J0690; J2250; J2270; J2704; J2795; J3010